=== PATIENT | female | born 1945 | race Caucasian/White ===

== ENCOUNTER 2021-06-15 15:06 | Outpatient (CLI) | payer MEDICARE, SELFPAY ==
--- NOTE | ~2021-06-15 | CT_ITS ---
EXAMINATION: CT brain wo con EXAM DATE: 06/15/2021 15:42 INDICATION: Syncope and collapse. TECHNIQUE: Spiral CT of the head was performed without contrast. Axial, coronal and sagittal images were reviewed. The dose-length product (DLP) for this examination was 605.33 mGy-cm. The exposure w as tailored according to patient size, and iterative reconstruction (ASIR) was used as additional dos e reduction technique. There is no prior study for comparison. FINDINGS: There is no acute intraparenchymal hemorrhage. No evidence of intraparenchymal brain mass lesion. No evidence of acute infarction. Please note that initial head CT has limited sensitivity f or small or acute infarctions. There is mild periventricular and subcortical hypodensity, nonspecific but probably related to small vessel ischemic disease. There is mild prominence of the sulci and v entricles related to cerebral atrophy. There is intracranial carotid arteriosclerosis. There are n o extra-axial collections. There is no mass effect or midline shift. The orbits are unremarkable. Soft tissue is unremarkable. The visualized sinuses and mastoid air cells are well aerated. IMPRESSION: 1. No acute intracranial findings. 2. Mild senescent changes. Reviewed, dictated and finalized at location B.
== END 2021-06-15 15:07 | disposition home or self-care (01) ==
PROVIDERS: PCP Physician Assistant; Visit Provider Physician Assistant
DX: R55 Syncope and collapse (principal)
CPT/HCPCS: 70450

== ENCOUNTER 2022-07-30 15:33 | Emergency (ER) | payer MEDICARE, SELFPAY ==
--- NOTE | ~2022-07-30 | XR_ITS ---
EXAM: XR humerus RT DATE: 07/30/2022 17:10 HISTORY: fall with arm injury . COMPARISON: None available. FINDINGS: Decreased mineralization. Mildly comminuted, mildly angulated fracture of the proximal rig ht humerus extending into the humeral head, likely involving portions of the greater tuberosity. No l ytic or blastic lesion. Degenerative AC and glenohumeral joint change. No erosion or periosteal carroll e. Soft tissues within normal limits. IMPRESSION: Mildly comminuted, mildly angulated humeral head/proximal humerus fracture. Reviewed, dictated and finalized at location K. IMPRESSION: Mildly comminuted, mildly angulated humeral head/proximal humerus f racture.
--- NOTE | ~2022-07-30 | XR_ITS ---
EXAM: XR forearm RT 2V DATE: 07/30/2022 18:18 HISTORY: fall with arm injury . COMPARISON: None available. FINDINGS: Decreased mineralization. Transverse distal right radial fracture, with posterior angulati on. No other fracture detected. No lytic or blastic lesion. Scattered degenerative changes. No erosio n or periosteal change. Soft tissues within normal limits. IMPRESSION: Transverse distal right radial fracture with mild posterior angulation. Reviewed, dictated and finalized at location K. IMPRESSION: Transverse distal right radial fracture with mild posterior angulat ion.
[2022-07-30 15:56] VITALS: BP 136/56; PULSE 88; RESP 16; TEMP 36.6; O2SAT 97
--- NOTE | 2022-07-30 16:48 | ED.FALL ---
HPI - Fall General Chief Complaint: Fall Stated Complaint: fall with pain to right arm Time Seen by Provider: 07/30/22 16:42 History of Present Illness HPI Narrative: Pt was pulling weeds and fell backward and rolled down a hill and struck a tree with her right arm. Pt denies LOC or neck pain. Pt complains of pain to her entire right arm. Related Data Allergies Allergy/AdvReac Type Severity Reaction Status Date / Time No Known Allergies Allergy Verified 07/30/22 15:33 Review of Systems Review of Systems: All systems reviewed & are unremarkable except as noted in HPI and below Exam Const: General: healthy appearing and no acute distress Nutritional Appearance: well nourished Orientation/consciousness: patient oriented x3 Limitations: no limitations HENMT: Head: normal to inspection Eyes: Conjunctivae: conjunctivae normal EOM: EOMs intact bilaterally Neck: Neck: normal visual inspection and no lymphadenopathy Chest: Chest palpation & inspection: normal inspection of the chest Resp: Effort & Inspection: normal respiratory effort Auscultation: clear to auscultation bilaterally Cardio: Rate: regular rate Rhythm: regular rhythm GI: GI Palp: Yes Soft to palpation Auscultation: normal bowel sounds Skin: General skin exam: normal color Rashes: no rashes Neuro: General: patient oriented x3 Cranial nerves: Yes Nystagmus not present Speech: normal speech Extrem: Other: tender right elbow and forearm, no obvious deformity. some swelling. pulses intact. Psych: Mental Status: mental status grossly normal Affect: normal affect Attitude: cooperative Course Course Emergency Course: discussed with dr thompson splstacy on wrist ans sling and will see in follow up in office Vital Signs Vital signs: Vital Signs Temperature 97.8 F 07/30/22 15:56 Pulse Rate 88 07/30/22 15:56 Respiratory Rate 16 07/30/22 15:56 Blood Pressure 136/56 L 07/30/22 15:56 Pulse Oximetry 97 07/30/22 15:56 Oxygen Delivery Room Air 07/30/22 15:56 Temperature 97.8 F 07/30/22 15:56 Pulse Rate 88 07/30/22 15:56 Respiratory Rate 16 07/30/22 15:56 Blood Pressure 136/56 L 07/30/22 15:56 Pulse Oximetry 97 07/30/22 15:56 Oxygen Delivery Room Air 07/30/22 15:56 Discharge Plan Discharge Clinical Impression: Fracture of wrist, Fracture of proximal end of right humerus Patient Disposition: Home, Self-Care Condition: Stable Instructions: Antibiotic Form, Wrist Fracture in Adults (ED), Proximal Humerus Fracture (ED) Prescriptions: New hydrocodone-acetaminophen 5-325 mg tablet 1 tablet PO Q6H PRN (Reason: pain) Qty: 14 0RF Follow-up/Referrals: Leana,Maggie Doty PA-C [Primary Care Provider] -
== END 2022-07-30 19:25 | disposition home or self-care (01) ==
PROVIDERS: Emergency Provider Emergency Medicine; PCP Physician Assistant
DX: S42.201A Unspecified fracture of upper end of right humerus, initial encounter for closed fracture (principal); S52.501A Unspecified fracture of the lower end of right radius, initial encounter for closed fracture; W17.81XA Fall down embankment (hill), initial encounter
CPT/HCPCS: 29125; 73060; 73090; 99284; A4565

== ENCOUNTER 2022-11-20 13:30 | Outpatient (RCR) | payer MEDICARE, SELFPAY ==
--- NOTE | 2022-09-19 13:37 | PTOPEVAL1 ---
Assessment and note entered by Marilyn Tan, PT Evaluation Information Assessment Status Evaluation Diagnosis s/p fall with R humeral fracture & radial fracture- non surgical Subjective Information pulling weeds from a retaining wall, pulled hard, fell backwards, rolled down hill, hit a tree; had splint on R wrist and R arm sling for shoulder, no longer using either one; am doing the pendulum exercises and wall walking for shoulder; trying to work fingers, but they do not move very well; Reported Pain Level Pain Score Self Report R shoulder Additional Pain Score Comments pain range of 0-4/10; hurts, sore, ouch; increase pain with moving shoulder; can lie on R side with sleeping; decrease pain with rest, ice, advil PRN ; also have pain in R wrist and fingers; Assessment PT Clinical Summary Ganesh has the diagnosis of R humeral and radial fracture-non surgical, s/p fall. Prior to fall, she was active and did not have any limitations in activity. She is R handed and has been trying to move her R shoulder and hand. Discussed with pt and will request OT orders for wrist and hand treatment from . With the evaluation, she has decreased ROM and strength of R shoulder with pain all motions. Skilled PT services are indicated for modalities to decrease pain, therapeutic exercises to increase shoulder ROM and strength, education to progress HEP and posture/position of shoulder. Plan of Care Interventions Electrical Stimulation,Hot Pack/Cold Pack,Manual Therapy,Neuro Re-education,Patient/Caregiver Education,Therapeutic Activities,Therapeutic Exercise,Ultrasound,Other Other Interventions taping PT Services Indicated Yes Treatment Frequency and 1-2x/wk for 5 weeks, pt requested 1-2 due to Duration insurance copay; informed her of financial assistance option These treatments will address the objective and functional deficits as defined above. The patient will be advanced safely and appropriately in order for the patient to progress towards his/her prior level of function. Additional exercises will be introduced and as well as a comprehensive home exercise program upon discharge, if needed, ?to ensure carryover of functional gains achieved in the clinic. This treatment plan has been reviewed and agreement upon by the patient.
--- NOTE | 2022-09-19 14:40 | PCPTNOTE ---
faxed request to Dr Marino for OT eval/treat to address radial fracture/hand and wrist. pt agreed to OT services;
--- NOTE | 2022-10-04 14:35 | OTOPEVAL1 ---
Assessment and note entered by ROMEL Fry/Frankie Evaluation Information Assessment Status Evaluation Diagnosis Distal radius fracture Subjective Information Ganesh presents today following a fall resulting in a distal radius fracture of the R UE on 07/30/2022 (9 weeks prior). Patient has complaints of difficulty with finger flexion, gripping items, using silverware. Reported Pain Level Pain Score 3: Self Report Assessment OT Clinical Summary Ganesh is a 77 year old R hand dominant female who presents to outpatient OT 9 weeks post distal radius fracture. Patient demonstrates deficits with ROM of the forearm, wrist, hand in addition to decreased strength of R UE hand. Patient would benefit from skilled OT for instruction of HEP materials, UE strengthening, UE ROM, modalities, manual therapy in order to improve optimal use of R UE for functional and daily tasks. Plan of Care Interventions Therapeutic Exercise,Manual Therapy,Therapeutic Activities,Hot Pack/Cold Pack,Self-Care/Home Management,Paraffin OT Services Indicated Yes These treatments will address the objective and functional deficits as defined above. The patient will be advanced safely and appropriately in order for the patient to progress towards his/her prior level of function. Additional exercises will be introduced and as well as a comprehensive home exercise program upon discharge, if needed, ?to ensure carryover of functional gains achieved in the clinic. This treatment plan has been reviewed and agreement upon by the patient.
--- NOTE | 2022-10-29 11:37 | OTOPPROG ---
Assessment and note entered by Marilee Middleton OTR/Frankie Evaluation Information Assessment Status Progress Diagnosis Distal radius fracture Subjective Information Ganesh presents today for a re-evaluation following a fall resulting in a distal radius fracture of the R UE on 07/30/2022. Patient has complaints of difficulty with finger flexion, gripping items, using silverware. Patient reports since starting therapy feels there is more motion in hand is able to complete more tasks than prior such as using fork. Assessment OT Clinical Summary Ganesh is a 77 year old R hand dominant female who presents to outpatient OT for re-evaluation following 4 weeks of therapy after a R UE distal radius fracture. 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 Patient still unable to make a composite fist with R UE. Patient would benefit from continued skilled OT for instruction of HEP materials, UE strengthening, UE ROM, modalities, manual therapy in order to improve optimal use of R UE for functional and daily tasks. Plan of Care Interventions Therapeutic Exercise,Manual Therapy,Therapeutic Activities,Hot Pack/Cold Pack,Self-Care/Home Management,Paraffin OT Services Indicated Yes Treatment Frequency and 0-1x/wk 4 weeks Duration These treatments will address the objective and functional deficits as defined above. The patient will be advanced safely and appropriately in order for the patient to progress towards his/her prior level of function. Additional exercises will be introduced and as well as a comprehensive home exercise program upon discharge, if needed, ?to ensure carryover of functional gains achieved in the clinic. This treatment plan has been reviewed and agreement upon by the patient.
[2022-10-29 11:45] VITALS: BP_SYST 95
--- NOTE | 2022-10-29 12:22 | PTOPDC ---
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 She has improved with her R shoulder since evaluation: pain at worst decreased from 4 to 2/10 increased active ROM and strength of all shoulder motions; increase use of R arm with home and self care tasks; She is independent with her home exercise program for her R shoulder. Discharge PT services. She is to continue with the stretching and strenghening of her shoulder. Plan of Care PT Services Indicated No
--- NOTE | 2022-11-20 14:19 | OTOPDC ---
Assessment and note entered by Marilee Middleton OTR/Frankie Evaluation Information Assessment Status Discharge Diagnosis Distal radius fracture Subjective Information Ganesh presents today following a fall resulting in a distal radius fracture of the R UE on 07/30/2022. Patient reports hand is moving better and would like to continue working on ROM and strength at home. Reported Pain Level Pain Score 0: Self Report Assessment OT Clinical Summary Ganesh is a 77 year old R hand dominant female who presents to outpatient OT for discharge following a R UE distal radius fracture. Patient demonstrates improvements with R UE active ROM, pumper helper/pinch strength. Patient reports feels hand is progressing well and would like to continue at home and is pleased to be discharged today from OT . Patient is independent with HEP which was progressed today and plan is to be discharged from skilled OT at this time. Plan of Care OT Services Indicated No
== END 2022-11-20 14:32 | disposition home or self-care (01) ==
LOC: ANHOT 13:30
PROVIDERS: PCP Physician Assistant; Visit Provider Orthopaedic Surgery
DX: S42.209D Unspecified fracture of upper end of unspecified humerus, subsequent encounter for fracture with routine healing (principal); S52.501D Unspecified fracture of the lower end of right radius, subsequent encounter for closed fracture with routine healing
CPT/HCPCS: 97018; 97110; 97112; 97140; 97161; 97165

== ENCOUNTER 2023-06-26 13:22 | Outpatient (CLI) | payer MEDICARE, SELFPAY ==
--- NOTE | 2023-06-26 14:00 | NEURO_ITS ---
Impression: # Complains of paresthesia of the left hand with nocturnal pain. # Severe left Carpal Tunnel Syndrome. # No ulnar neuropathy. # Abnormal Needle/EMG exam. Nerve Conduction Studies Anti Sensory Summary Table Stim Site NR Peak (ms) P-T Amp (?V) Site1 Site2 Delta-P (ms) Dist (cm) Gopi (m/s) Left Median Anti Sensory (2-3nd Digit) NO RESPONSE Wrist 8.8 28.9 Wrist 2-3nd Digit 8.8 14.0 16 Wrist NR Wrist 2-3nd Digit 8.8 14.0 16 Left Radial Anti Sensory (Base 1st Digit) Wrist 1.9 16.0 Wrist Base 1st Digit 1.9 0.0 Left Ulnar Anti Sensory (5th Digit) Wrist 2.4 25.8 Wrist 5th Digit 2.4 14.0 58 Motor Summary Table Stim Site NR Onset (ms) O-P Amp (mV) Site1 Site2 Delta-0 (ms) Dist (cm) Gopi (m/s) Left Median Motor (Abd Poll Brev) Wrist 7.6 1.1 Elbow Wrist 4.7 26.0 55 Elbow 12.3 1.2 Left Ulnar Motor (Abd Dig Minimi) Wrist 2.5 6.5 A Elbow Wrist 4.9 26.0 53 A Elbow 7.4 6.0 F Wave Studies NR F-Lat (ms) L-R F-Lat (ms) Left Median (Mrkrs) (Abd Poll Brev) 28.70 Left Ulnar (Mrkrs) (Abd Dig Min) 30.14 EMG Side Muscle Nerve Root Ins Act Fibs Amp Dur Recrt Comment Left 1stDorInt Ulnar C8-T1 Nml Nml Nml Nml Nml Left Ext Indicis Radial (Post Int) C7-8 Nml Nml Nml Nml Nml Left Ext Digitorum Radial (Post Int) C7-8 Nml Nml Nml Nml Nml Left BrachioRad Radial C5-6 Nml Nml Nml Nml Nml Left PronatorTeres Median C6-7 Nml Nml Nml Nml Nml Left Abd Poll Brev Median C8-T1 Nml Nml Incr >12ms Reduced MTDD
== END 2023-06-26 13:23 | disposition home or self-care (01) ==
LOC: ANHNEURO 13:23
PROVIDERS: Visit Provider Orthopaedic Surgery
DX: G56.02 Carpal tunnel syndrome, left upper limb (principal)
CPT/HCPCS: 95886; 95909

== ENCOUNTER 2024-12-28 13:46 | Emergency (ER) | payer MEDICARE, SELFPAY ==
--- NOTE | ~2024-12-28 | CT_ITS ---
EXAMINATION: CT abd pelvis lumbar w con DATE: 12/28/2024 17:28 INDICATION: Right flank pain. Pelvic pain. TECHNIQUE: Computed tomography (CT) of the abdomen and pelvis and lumbar spine was performed with 100 mL Omnipaque 350 intravenous contrast. Automated exposure control and iterative reconstruction techn ique were employed. The dose-length product was 340.04 mGy-cm. COMPARISON: None FINDINGS: CT ABDOMEN AND PELVIS: The visualized portions of lung bases demonstrate mild atelectasis on the righ t. No pleural effusion. The heart size is normal. There are coronary artery calcifications. No perica rdial effusion. Paraesophageal varices are noted. The liver, gallbladder, spleen, pancreas, adrenal g lands, and kidneys are normal. The periuterine veins and ovarian veins are enlarged, consistent with pelvic venous insufficiency. There are no dilated loops of bowel. The appendix is normal. There is ca lcified atherosclerosis of the aorta and many of the other arteries. There are no pathologically enla rged lymph nodes. There is no free intraperitoneal fluid. CT LUMBAR SPINE: Alignment is normal. Vertebral body heights are normal. There is mildly decreased di sc height at L1-L2 and severely decreased disc at L2-L3, L4-L5, and L5-S1. The following disc levels are specifically discussed: L1-L2: The disc is bulging. There is moderate bilateral facet joint osteoarthritis. There is mild wolfgang ateral neural foraminal stenosis. There is mild central canal stenosis. L2-L3: The disc is bulging. There is moderate right and severe left facet joint osteoarthritis. There is mild bilateral neural foraminal stenosis. There is mild central canal stenosis. L3-L4: The disc is bulging. There is moderate right and severe left facet joint osteoarthritis. There is mild bilateral neural foraminal stenosis. There is mild central canal stenosis. L4-L5: The disc is bulging. There is severe bilateral facet joint osteoarthritis. There is mild right and moderate left neural foraminal stenosis. There is moderate central canal stenosis. L5-S1: The disc is bulging. There is severe bilateral facet joint osteoarthritis. There is mild right and moderate left neural foraminal stenosis. There is mild central canal stenosis. IMPRESSION: 1. Pelvic venous insufficiency. 2. Severe lumbar spondylosis. Reviewed, dictated and finalized at location A. STRY AID TECHNICIAN
[2024-12-28 14:08] VITALS: BP 187/73; PULSE 72; RESP 20; TEMP 36.5; O2SAT 98
--- OUTSIDE RECORDS SUMMARY | 2024-12-28 14:34 | XMS_ITS | Clinical Summary ---
Author Organization [facility] [address] [facility] Address [address] [place] [address] Care Team Providers Care Senior Mobile Application Developer Name Role Phone Marleny Miller NP Primary Care Provider [phone] Allergies No known active allergies Medications aspirin 81 mg enteric coated tablet Take 1 tablet (81 mg total) by mouth every evening Active clobetasoL (TEMOVATE) 0.05 % ointment Apply 1 Application topically 2 (two) times a day as needed Active enalapril (VASOTEC) 5 mg tablet TAKE 1 TABLET EVERY DAY 90 tablet 3 07/01/20 24 Active lovastatin (MEVACOR) 20 mg tablet TAKE 1 TABLET EVERY DAY 90 tablet 3 07/01/20 24 Active glyBURIDE (DIABETA) 5 mg tablet TAKE 1 TABLET EVERY DAY WITH BREAKFAST 90 tablet 3 07/01/20 24 Active levothyroxine (SYNTHROID) 112 mcg tabletIndications: Acquired hypothyroidism TAKE 1 TABLET (112 MCG TOTAL) BY MOUTH EXCAVATOR BACKHOE OPERATOR BEFORE BREAKFAST 90 tablet 3 07/01/20 24 Active propranoloL (INDERAL) 10 mg tabletIndications: Palpitations TAKE 1 TABLET(10 MG) BY MOUTH DAILY 90 tablet 1 10/19/20 24 Active Active Problems Problem Noted Date Diagnosed Date Positive colorectal cancer screening using Colog uard test 03/26/2024 Overview (03/26/2024): Contact Dr. Cloud's office for positive Cologuard test. We will call you in 2 weeks Palpitations 03/03/2024 Overview (03/03/2024): Start propranolol 10 mg daily. Follow-up with cardiology as directed. Go to the ER for worsening symptoms BMI 24.0-24.9, adult 03/03/2024 Overview (03/03/2024): Maintain healthy and balanced diet Feeling of chest tightness 02/20/2024 Overview (02/20/2024): Go directly to the ER for evaluation of intermittent chest pain. Follow-up after discharge Colon cancer screening declined 01/29/2023 Tobacco use 05/30/2022 Assessment & Plan (05/31/2022 7:07 AM CDT): Advised smoking cessation, she declines aid. Bilateral carpal tunnel syndrome 05/30/2022 Assessment & Plan (05/31/2022 7:06 AM CDT): Discussed that symptoms are concerning for CTS. Advised cockup splints at hs and cutting back on phone/screen time. Will refer to ortho for further evaluation and treatment. Elbow pain, right 05/30/2022 Assessment & Plan (05/31/2022 7:06 AM CDT): Will refer to ortho for further evaluation and treatment. Chronic right shoulder pain 05/30/2022 Assessment & Plan (05/31/2022 7:06 AM CDT): Will refer to ortho for further evaluation and treatment. Acquired hypothyroidism 05/24/2021 Assessment & Plan (05/31/2022 7:05 AM CDT): We reviewed recent labs. Will increase synthroid and repeat tsh, free t4 in 12w. Assessment & Plan (12/12/2021 3:49 PM PIEROGI MAKER): Stable, continue medications same at this time Fasting labs entered, will notify patient of results as available Assessment & Plan (05/24/2021 6:20 PM CDT): Controlled with current medication, rf prn Fasting labs entered, will notify patient of results as available Type 2 diabetes mellitus with hyperlipidemia Assessment & Plan (05/31/2022 7:07 AM CDT): Patient advised goal glucose fasting 80-120. They were reminded to contact the office if having difficulty keeping sugar in goal ranges. They were advised to not skip meals and maintain a heart healthy diet (cut back on processed foods, red meat, fried foods). They were reminded to exercise 4x/week for 30min each session. Assessment & Plan (12/12/2021 3:49 PM PIEROGI MAKER): Stable, continue medications same at this time Fasting labs entered, will notify patient of results as available Assessment & Plan (05/24/2021 6:20 PM CDT): Controlled with current medication, rf prn Fasting labs entered, will notify patient of results as available Hypertension associated with diabetes 05/24/2021 Assessment & Plan (05/31/2022 7:07 AM CDT): Patient advised to continue medications the same at this time. They will monitor home bp with goal 120-130/80s. Assessment & Plan (12/12/2021 3:49 PM PIEROGI MAKER): Stable, continue medications same at this time Fasting labs entered, will notify patient of results as available Assessment & Plan (05/24/2021 6:20 PM CDT): Controlled with current medication, rf prn Fasting labs entered, will notify patient of results as available Colon cancer screening 05/24/2021 Assessment & Plan (05/24/2021 6:21 PM CDT): Retrieve records from previous pcp She declines vaccination updates, bmd, cscope, or mammo Resolved Problems Problem Noted Date Diagnosed Date Resolved Date BMI 25.0-25.9,adult 05/30/2022 08/13/20 24 Subconjunctival hemorrhage of left eye 12/12/2021 01/29/2023 Assessment & Plan (12/12/2021 3:49 PM PIEROGI MAKER): Advised conservative treatment, follow up if having pain, difficulty with vision Advised routine DM eye exam BMI 24.0-24.9, adult 05/31/2021 023 Assessment & Plan (05/31/2021 2:28 PM CDT): Weight/BMI is in healthy range. Continue healthy lifestyle to maintain. Syncope and collapse 05/24/2021 023 Assessment & Plan (05/31/2021 5:04 PM CDT): Advised her to arrange labs and ct head, will notify of results as available F/u if reoccurring Assessment & Plan (05/24/2021 6:20 PM CDT): She declines an er visit at this time. She declines a stat ct of head - will arrange routine instead. Advised to er if occurs again Advised no driving, climbing, or swimming at this time. Immunizations Name Administration Dates Next Due Influenza, Unspecified 08/13/2024(Deferr ed: Patient Refused),03/26/2024(Deferred: Patient Refused),02/24/2024(Deferred: Patient Refused),02/19/2024(Deferred: Patient Refused),02/05/2024(Deferred: Patient Refused),12/02/2023(Deferred: Patient Refused),12/02/2023(Deferred: Patient Refused),12/02/2023(Deferred: Patient Refused),12/02/2023(Deferred: Patient Refused),12/02/2023(Deferred: Patient Refused),08/07/2023(Deferred: Patient Refused),08/07/2023(Deferred: Patient Refused),01/29/2023(Deferred: Patient Refused),12/02/2022(Deferred: Patient Refused),12/02/2022(Deferred: Patient Refused),01/02/2022(Deferred: Patient Refused) Pneumococcal Conjugate Pcv20 08/07/2023(Deferred : Patient Refused) Surgical History Surgery Date Site/Laterality Comments TUBAL LIGATION Medical History Medical History Date Comments Hypertension Diabetes mellitus (HCC) Family History Medical History Relation Name Comments COPD Mother Hypertension Mother Relation Name Status Comments Father Mother Social History Tobacco Use Types Packs/Day Years Used Date Smoking Tobacco: Every Day Cigarettes Smokeless Tobacco: Never Tobacco Cessation:Ready to Q uit: Not Asked; Counseling Given: Not Answered AUDIT-C Answer Date Recorded Q1: How often do you have a drink containing alc ohol? Monthly or less 12/12/2021 Average Number of Drinks Not on file 022 Frequency of Binge Drinking Not on file 12/02 PHQ-2 Answer Date Recorded PHQ-2 Total Score (If total score is 3 or more points, staff should administer the PHQ-9) 1 08/13/2024 Personal Safety Answer Date Recorded Have you ever been in or are you currently in a harmful physical or emotional relationship or is someone making you feel afraid or unsafe? Denies 02/20/2024 Comments Unknown Sex and Gender Information Value Date Recorded Sex Assigned at Not on file Legal Sex Female 1:40 PM CDT Gender Identity Not on file Sexual Orientation Not on file Obstetrics History Last Filed Vital Signs Vital Sign Reading Time Taken Comments Blood Pressure 138/64 08/13/2024 2:29 PM CDT Pulse 67 08/13/2024 2:29 PM CDT Temperature 36.9 ??C (98.4 ??F) 08/13/2024 2:29 PM CD T Respiratory Rate 13 02/20/2024 2:35 PM CDT Oxygen Saturation 97% 08/13/2024 2:29 PM CDT Inhaled Oxygen Concentration - - Weight 61.7 kg (136 lb) 08/13/2024 2:29 PM CDT Height 157.5 cm (5' 2 ) 08/13/2024 2:29 PM CDT Body Mass Index 24.87 08/13/2024 2:29 PM CDT Plan of Treatment Health Maintenance Due Date Last Done Comments Osteoporosis Screening-Bone Density Scan 1945 Dilated Eye Exam 1945 Foot Exam 1945 Pneumococcal vaccine 65+ (1 of 2 - PCV) 1953 DTaP/Tdap/Td Vaccine (1 - Tdap) 1958 Hepatitis B Screening 1965 Zoster Vaccine (1 of 2) 1997 Influenza Vaccine (#1) 2024 Albumin Creatinine Ratio, Urine 01/22/2025 Lipid Panel 01/22/2025 01/22/2024, 03/0 05/2023, 05/23/2022, Additional history exists Hemoglobin A1C 02/10/2025 08/13/2024, 02/2 12/2023, 02/04/2023, Additional history exists eGFR 02/19/2025 02/20/2024, 022 12/2023, 02/04/2023, Additional history exists Depression Screening 08/13/2025 08/13/2024, 03/26/2024, 02/24/2024, Additional history exists Fall Risk Assessment 08/13/2025 08/13/2024, 03/26/2024, 02/24/2024, Additional history exists Well Visit 65+ 08/13/2025 08/13/2024, 03/0 05/2024, 08/07/2023 Colon Cancer Screening-DNA Stool 03/16/2027 03/16/20 Hepatitis C Screening Completed 02/04/2023 Procedures Procedure Name Priority Date/Time Associated Diagnosis Comments POCT HEMOGLOBIN A1C Routine 08/13/2024 3 :39 PM CDT Hypertension associated with diabetes (HCC) STOOL DNA ? COLOGUARD Routine 03/16/2024 8:30 AM CDT Colon cancer screening EGFR STAT 02/20/2024 1:23 PM CDT LIPID PANEL Routine 01/22/2024 8:55 AM PIEROGI MAKER Type 2 diabetes mellitus with hyperlipidemia (HCC) ALBUMIN CREATININE RATIO, URINE Routine 01/22/2024 8:55 AM PIEROGI MAKER Hypertension associated with diabetes (HCC) HEPATITIS C ANTIBODY Routine 02/04/2023 8:46 AM PIEROGI MAKER Encounter for hepatitis C screening test for low risk patient from Last 3 Months or Most Recently Relevant to Health Maintenance Results * (ABNORMAL) POCT hemoglobin A1c (08/13/2024 3:39 PM CDT) Hemoglobin A1C, POC 7.6 4.0 - 5.6 % BLD 08/13/2024 3:39 PM CDT Marleny Miller NP POINT OF CARE TEST ORDERABLES Final Result * (ABNORMAL) Stool DNA - Cologuard (03/16/2024 8:30 AM CDT) Stool DNA - Cologuard Positive( A) Negative [facility] (CLIA #:[id number]) Comment: POSITIVE TEST RESULT. A positive Cologuard result should be followed with a colonoscopy or visual examination of the colon. The normal value (reference range) for this assay is negative. TEST DESCRIPTION: Composite algorithmic analysis of stool DNA-biomarkers with hemoglobin immunoassay. ?? Quantitative values of individual biomarkers are not reportable and are not associated with individual biomarker result reference ranges. Cologuard is intended for colorectal cancer screening of adults of either sex, 45 years or older, who are at average-risk for colorectal cancer (CRC). Cologuard has been approved for use by the U.S. FDA. The performance of Cologuard was established in a cross sectional study of average-risk adults aged 50-84. Cologuard performance in patients ages 45 to 49 years was estimated by sub-group analysis of near-age groups. Colonoscopies performed for a positive result may find as the most clinically significant lesion: colorectal cancer [4.0%], advanced adenoma (including sessile serrated polyps greater than or equal to 1cm diameter) [20%] or non- advanced adenoma [31%]; or no colorectal neoplasia [45%]. These estimates are derived from a prospective cross-sectional screening study of 10,000 individuals at average risk for colorectal cancer who were screened with both Cologuard and colonoscopy. (Tyrese Chen al, N Engl J Med 2014;370(14):0678-8482.) Cologuard may produce a false negative or false positive result (no colorectal cancer or precancerous polyp present at colonoscopy follow up). A negative Cologuard test result does not guarantee the absence of CRC or advanced adenoma (pre-cancer). The current Cologuard screening interval is every 3 years. ([place] Cancer Society and U.S. Multi-Society Task Force). Cologuard performance data in a 10,000 patient pivotal study using colonoscopy as the reference method can be accessed at the following location: www.Active DSP.PlayBuzz/results. Additional description of the Cologuard test process, warnings and precautions can be found at www.Kona DataSearchrd.com. Stool 03/16/2024 8:30 AM CDT 03/17/2024 10:19 AM CDT us Marleny Miller NP LAB BODY FLUIDS AND STOOLS OR DERABLES Final Result [facility] (CLIA #:[id number]) [place] [address] [place] [address] * eGFR (02/20/2024 1:23 PM CDT) eGFR 92 mL/min/1. 73 m2 Comment: Interpretive Data Reference Interval Normal ?>/= 90 mL/min/1.73m2 Mildly decreased* ? 60 - 89 mL/min/1.73m2 Mildly to moderately decreased ?45 - 59 mL/min/1.73m2 Moderately to severely decreased ??30 - 44 mL/min/1.73m2 Severely decreased ?15 - 29 mL/min/1.73m2 Kidney Failure ?< 15 ??mL/min/1.73m2 *Relative to young adult level Estimated glomerular filtration rate is determined by the 2020 CKD-EPI equation recommended by the National Kidney Foundation (A Unifying Approach to GFR Estimation: Recommendations of the NKF-ASK Task Force on Reassessing the Inclusion of Race in Diagnosing Kidney Disease, JASN 2020). The CKD-EPI equation should not be used for patients with unstable renal function and has not been validated in children and those over 70. Current interpretive data was last reviewed 2021. Testing performed by: [facility], [address] [place] [address]., [id number] Blood 02/20/2024 1:23 PM CDT 02/20/2024 1:27 PM CDT us Aime Mayfield DO LAB BLOOD ORDERABLES Final Result Performing Organization Address City/[facility]/ZIP Co de Phone Number [facility] [address] [facility] Department [place] [address] * Albumin Creatinine Ratio, Urine (01/22/2024 8:55 AM PIEROGI MAKER) Pathologist [facility] Creatinine, ur 118 20 - 275 mg/dL [facility] Microalbumin, ur 1.1 See Note: mg/dL [facility] Comment: Reference Range: Reference Range Not established Microalbumin/creat ratio 9 <30 mcg/mg creat [facility] Comment: The ADA defines abnormalities in albumin excretion as follows: Albuminuria Category ?Result (mcg/mg creatinine) Normal to Mildly increased ?? <30 Moderately increased ? 30-299 Severely increased ? > OR = 300 The ADA recommends that at least two of three specimens collected within a 3-6 month period be abnormal before considering a patient to be within a diagnostic category. Urine 01/22/2024 8:55 AM PIEROGI MAKER 01/22/2024 8:59 AM PIEROGI MAKER Narrative [facility] - 01/23/2024 10:54 AM PIEROGI MAKER FASTING:YES FASTING: YES us Marleny Miller PHARMACY STUDENT LAB URINE ORDERABLES Final Re sult [facility] [address] [address] * Lipid panel (01/22/2024 8:55 AM PIEROGI MAKER) Cholesterol 142 <200 mg/dL [facility] HDL 54 > OR = 50 mg/dL [facility] Triglycerides 64 <150 mg/dL [facility] claud[facility] Mccorm[facility] LDL 74 mg/dL (calc) [facility] Comment: Reference range: <100 Desirable range <100 mg/dL for primary prevention; ?? <70 mg/dL for patients with CHD or diabetic patients with > or = 2 CHD risk factors. LDL-C is now calculated using the Triny calculation, which is a validated novel method providing better accuracy than the Friedewald equation in the estimation of LDL-C. Napoleon SS et al. JOSÉ ANTONIO. 2013;310(59): 7032-7889 (http://education.Clarion Research Group/faq/CSJ784) Chol/HDL ratio 2.6 <5.0 (calc) [facility] Non-HDL, (LDL+VLDL) 88 <130 mg/dL (calc) [facility] Comment: For patients with diabetes plus 1 major ASCVD risk factor, treating to a non-HDL-C goal of <100 mg/dL (LDL-C of <70 mg/dL) is considered a therapeutic option. Blood 01/22/2024 8:55 AM PIEROGI MAKER 01/22/2024 8:59 AM PIEROGI MAKER Narrative [facility] - 01/23/2024 10:54 AM PIEROGI MAKER FASTING:YES FASTING: YES Marleny Miller PHARMACY STUDENT LAB BLOOD ORDERABLES Final Re sult [facility] [address] [place] [address] * Hepatitis C antibody (02/04/2023 8:46 AM PIEROGI MAKER) [facility] Hep C Ab NON-REACTI VE NON-REACT PRATIK [facility] SIGNAL TO CUT-OFF 0.04 <1.00 [facility] Comment: HCV antibody was non-reactive. There is no laboratory evidence of HCV infection. In most cases, no further action is required. However, if recent HCV exposure is suspected, a test for HCV RNA (test code 60363) is suggested. For additional information please refer to http://education.LoopFuse.PlayBuzz/faq/JNN82x5 (This link is being provided for informational/ educational purposes only.) Blood 02/04/2023 8:46 AM PIEROGI MAKER 02/04/2023 8:46 AM PIEROGI MAKER Marleny Miller NP LAB MICROBIOLOGY - GENERAL OR DERABLES Final Result Performing Organization Address City/State/[facility] Co sc Phone Number [facility] [address] [phone] from Last 3 Months or Most Recently Relevant to Health Maintenance Insurance HUMANA MEDICARE HMO HUMANA MEDICARE HMO Care Teams Senior Mobile Application Developer Relationship Specialty Start Date End Date Marleny Miller, PHARMACY STUDENT [address] [address] PCP - General Internal Medicine 01/29/23
--- OUTSIDE RECORDS SUMMARY | 2024-12-28 14:34 | XMS_ITS | Referral Summary ---
Author Organization [facility] [address] [facility] Address [address] [place] [address] Care Team Providers Care Pyroglazer Name Role Phone Marleny Miller NP Primary Care Provider [phone] Allergies No known active allergies Medications aspirin [...] 1 TABLET (112 MCG TOTAL) BY MOUTH SMALL BUSINESS BANKING OFFICER BEFORE BREAKFAST 90 tablet 3 07/01/20 24 [...] 12w. Assessment & Plan (12/12/2021 3:49 PM CONTRACT FORESTER): Stable, continue medications same at this time [...] session. Assessment & Plan (12/12/2021 3:49 PM CONTRACT FORESTER): Stable, continue medications same at this time [...] 120-130/80s. Assessment & Plan (12/12/2021 3:49 PM CONTRACT FORESTER): Stable, continue medications same at this time [...] 01/29/2023 Assessment & Plan (12/12/2021 3:49 PM CONTRACT FORESTER): Advised conservative treatment, follow up if having [...] Pneumococcal Conjugate Pcv20 08/07/2023(Deferred : Patient Refused) Social History Tobacco Use Types Packs/Day Years [...] on file Sexual Orientation Not on file Last Filed Vital Signs Vital Sign Reading [...] 08/13/2024 2:29 PM CDT Plan of Treatment Not on file Procedures Procedure Name Priority Date/Time Associated Diagnosis Comments POCT HEMOGLOBIN A1C Routine 08/13/2024 3 :39 PM CDT Hypertension associated with diabetes (HCC) STOOL DNA ? COLOGUARD Routine 03/16/2024 8:30 AM CDT Colon cancer screening EGFR STAT 02/20/2024 1:23 PM CDT LIPID PANEL Routine 01/22/2024 8:55 AM CONTRACT FORESTER Type 2 diabetes mellitus with hyperlipidemia (HCC) ALBUMIN CREATININE RATIO, URINE Routine 01/22/2024 8:55 AM CONTRACT FORESTER Hypertension associated with diabetes (HCC) HEPATITIS C ANTIBODY Routine 02/04/2023 8:46 AM CONTRACT FORESTER Encounter for hepatitis C screening test for [...] Stool DNA - Cologuard Positive( A) Negative [facility] (CLIA #:[id number]) Comment: POSITIVE TEST RESULT. A positive Cologuard [...] (Tyrese Chen al, N Engl J Med 2014;370(14):3879-6351.) Cologuard may produce a false negative or false positive result (no colorectal cancer or precancerous polyp present at colonoscopy follow up). A negative Cologuard test result does not guarantee the absence of CRC or advanced adenoma (pre-cancer). The current Cologuard screening interval is every 3 years. ([place] Cancer Society and U.S. Multi-Society Task Force). Cologuard performance data in a 10,000 patient pivotal study using colonoscopy as the reference method can be accessed at the following location: www.Doctor kinetic.Credit Karma/results. Additional description of the Cologuard test process, warnings and precautions can be found at www.[email or web address] Mobilerd.Credit Karma. Stool 03/16/2024 8:30 AM CDT 03/17/2024 10:19 AM CDT us Marleny Miller NP LAB BODY FLUIDS AND STOOLS OR DERABLES Final Result [email or web address] (CLIA #:[id number]) [address] [place] [address] * eGFR (02/20/2024 1:23 PM CDT) eGFR [...] was last reviewed 2021. Testing performed by: [facility], [address] [place] [address], [place]., [address] Blood 02/20/2024 1:23 PM CDT 02/20/2024 1:27 PM CDT Aime Mayfield DO LAB BLOOD ORDERABLES Final Result [facility] [address] [facility] Department [place] [address] * Albumin Creatinine Ratio, Urine (01/22/2024 8:55 AM CONTRACT FORESTER) Creatinine, ur 118 20 - 275 mg/dL [...] a diagnostic category. Urine 01/22/2024 8:55 AM CONTRACT FORESTER 01/22/2024 8:59 AM CONTRACT FORESTER Narrative [facility] - 01/23/2024 10:54 AM CONTRACT FORESTER FASTING:YES FASTING: YES Marleny Miller GRINDER WATCH PARTS LAB URINE ORDERABLES Final Re sult [facility] [address] [address] * Lipid panel (01/22/2024 8:55 AM CONTRACT FORESTER) Pathologist [facility] Cholesterol 142 <200 mg/dL [facility] HDL 54 > OR = 50 mg/dL [facility] Triglycerides 64 <150 mg/dL [facility] LDL 74 mg/dL (calc) [facility] Comment: Reference range: <100 Desirable range <100 mg/dL for primary prevention; ?? <70 mg/dL for patients with CHD or diabetic patients with > or = 2 CHD risk factors. LDL-C is now calculated using the Triny calculation, which is a validated novel method providing better accuracy than the Friedewald equation in the estimation of LDL-C. Napoleon WORKMAN et al. JOSÉ ANTONIO. 2013;310(19): 3291-9943 (http://education.Desire2Learn/faq/BSA004) Chol/HDL ratio 2.6 <5.0 (calc) [facility] Non-HDL, (LDL+VLDL) 88 <130 mg/dL (calc) [facility] Comment: For patients with diabetes plus 1 major ASCVD risk factor, treating to a non-HDL-C goal of <100 mg/dL (LDL-C of <70 mg/dL) is considered a therapeutic option. Blood 01/22/2024 8:55 AM CONTRACT FORESTER 01/22/2024 8:59 AM CONTRACT FORESTER Narrative [facility] - 01/23/2024 10:54 AM CONTRACT FORESTER FASTING:YES FASTING: YES Marleny Miller GRINDER WATCH PARTS LAB BLOOD ORDERABLES Final Re sult Performing Organization Address City/[facility]/ZIP Co de Phone Number [facility] [address] [place] [address] * Hepatitis C antibody (02/04/2023 8:46 AM CONTRACT FORESTER) Hep C Ab NON-REACTI VE NON-REACT PRATIK [facility] SIGNAL TO CUT-OFF 0.04 <1.00 [facility] Comment: HCV antibody was non-reactive. There is no laboratory evidence of HCV infection. In most cases, no further action is required. However, if recent HCV exposure is suspected, a test for HCV RNA (test code 42777) is suggested. For additional information please refer to http://education.PharmaSecure/faq/CIG23w0 (This link is being provided for informational/ educational purposes only.) Blood 02/04/2023 8:46 AM CONTRACT FORESTER 02/04/2023 8:46 AM CONTRACT FORESTER Marleny Miller NP LAB MICROBIOLOGY - GENERAL OR DERABLES Final Result Performing Organization Address City/State/[facility] Co wa Phone Number [facility] [address] [place] [address] from Last 3 Months or Most Recently Relevant to Health Maintenance Insurance HUMANA MEDICARE HMO HUMANA MEDICARE HMO Care Teams Pyroglazer Relationship Specialty Start Date End Date Marleny Miller, BRAEDEN [address] [facility] [address] [place] [address] PCP - General Internal Medicine 01/29/23
--- NOTE | 2024-12-28 15:29 | ED.BACK ---
HPI - Back Pain/Injury General Chief Complaint: Back Pain/Injury <Mehnza Phillips, ASSEMBLER INSTALLER GENERAL - Last Filed: 12/28/24 15:33> Stated Complaint: SCIATICA PAIN <Mehnaz Phillips ASSEMBLER INSTALLER GENERAL - Last Filed: 12/28/24 15:33> Time Seen by Provider: 12/28/24 15:20 <Mehnaz Phillips ASSEMBLER INSTALLER GENERAL - Last Filed: 12/28/24 15:33> Focused HPI: Patient is a 79-year-old female who presents to the ER with right flank and pelvis pain. She also endorses sciatic that started approximately 3 days. Patient denies any urinary symptoms or abdominal pain. She also reports her blood pressure has been elevated over the last 3 days but is normally well controlled with blood pressure medication. Patient denies chest pain, shortness of breath, recent fevers. She denies any medical history besides sciatica and hypertension. GENERAL: Well-appearing, well-nourished, and in no acute distress. HEAD: Normocephalic, atraumatic. CHEST: Clear to auscultation. ?No respiratory distress. HEART: Regular rate and rhythm.? NEURO: ?Alert and oriented x3. Cranial nerves intact. Patient screened in triage and initial orders placed.? ?Additional care and disposition to be based upon?diagnostic testing and treatment. <Mehnaz Phillips, ASSEMBLER INSTALLER GENERAL - Last Filed: 12/28/24 15:33> Focused HPI: Patient is a 79-year-old female who presents to the ER with right flank and pelvis pain. She also endorses sciatic that started approximately 3 days. Patient denies any urinary symptoms or abdominal pain. She also reports her blood pressure has been elevated over the last 3 days but is normally well controlled with blood pressure medication. Patient denies chest pain, shortness of breath, recent fevers. She denies any medical history besides sciatica and hypertension. No urinary retention, bowel incontinence, saddle anesthesia lower extremity weakness. She denies any history of IV drug abuse cancer fevers or trauma. GENERAL: Well-appearing, well-nourished, and in no acute distress. HEAD: Normocephalic, atraumatic. CHEST: Clear to auscultation. ?No respiratory distress. HEART: Regular rate and rhythm.? NEURO: ?Alert and oriented x3. Cranial nerves intact. Patient screened in triage and initial orders placed.? ?Additional care and disposition to be based upon?diagnostic testing and treatment. <Preet Morrell MD - Last Filed: 12/28/24 19:11> Related Data Allergies/Adverse Reactions: Allergies Allergy/AdvReac Type Severity Reaction Status Date / Time No Known Allergies Allergy Verified 12/28/24 14:09 <Mehnaz Phillips APRN - Last Filed: 12/28/24 15:33> [facility] Past Medical History Medical History: Medical History Hypothyroidism HTN (hypertension) HLD (hyperlipidemia) Diabetes <Mehnaz Phillips APRN - Last Filed: 12/28/24 15:33> Surgical History Surgical History: Surgical History No history of previous surgery <Mehnaz Phillips APRN - Last Filed: 12/28/24 15:33> Family History Family History: Family History Other Diabetes mellitus HLD (hyperlipidemia) Hypertension <Mehnaz Phillips APRN - Last Filed: 12/28/24 15:33> Social History Social History: Social History Smoking packs per day: 0.5 Smoking cigarettes per day: 10.0 Years smoked: 30 Smoking pack-years: 15.00 Smoking status: Current every day smoker Tobacco type: cigarettes Alcohol intake: never Substance use type: does not use Living arrangements: with family Occupation/Education: retired Gender identity (if verbalized by the patient): Female <Mehnaz Phillips APRN - Last Filed: 12/28/24 15:33> Exam Narrative: APPEARANCE: No apparent distress. Head: atraumatic. EYES: EOMI, NOSE: Atraumatic NECK: Trachea midline RESPIRATORY: No increased rate of breathing clear to auscultation CARDIOVASCULAR: RRR, ABDOMINAL: Non-distended MUSCULOSKELETAl: Straight leg negative bilaterally NEURO: Alert. Cranial nerves 2-12 grossly intact. Sensation light touch, motor function cerebellar function intact for 4 extremities. Gait exam was normal. SKIN:: Warm, dry. Normal color PSYCHIATRIC: Normal affect <Preet Morrell MD - Last Filed: 12/28/24 19:11> Course Vital Signs Vital signs: Vital Signs Temperature 97.7 F 12/28/24 14:08 Pulse Rate 72 12/28/24 14:08 Respiratory Rate 20 12/28/24 14:08 Blood Pressure 187/73 H 12/28/24 14:08 Pulse Oximetry 98 12/28/24 14:08 Temperature 97.7 F 12/28/24 14:08 Pulse Rate 70 12/28/24 18:00 Respiratory Rate 18 12/28/24 18:00 Blood Pressure 136/68 12/28/24 18:00 Pulse Oximetry 98 12/28/24 18:00 <Mehnaz Phillips APRN - Last Filed: 12/28/24 15:33> Vital Signs Temperature 97.7 F 12/28/24 14:08 Pulse Rate 72 12/28/24 14:08 Respiratory Rate 20 12/28/24 14:08 Blood Pressure 187/73 H 12/28/24 14:08 Pulse Oximetry 98 12/28/24 14:08 Temperature 97.7 F 12/28/24 14:08 Pulse Rate 70 12/28/24 18:00 Respiratory Rate 18 12/28/24 18:00 Blood Pressure 136/68 12/28/24 18:00 Pulse Oximetry 98 12/28/24 18:00 <Preet Morrell MD - Last Filed: 12/28/24 19:11> MDM - Back Pain/Injury MDM Narrative Medical decision making narrative: -Course: 79-year-old woman presenting with right-sided sciatica. She received Toradol in the lobby and by time I interviewed her all of her symptoms had resolved she is requesting discharge. Her neurologic exam is normal. Straight leg is negative bilaterally. Patient be discharged with pain medication and primary care follow-up. -DDX includes but is not limited to: Sciatica, muscle strain, cauda equina/spinal cord impingement, AAA -Independent interpretation of studies: Labs and imaging reviewed -Interventions: Toradol, prednisone -Shared decision making / Disposition: Discharge -RX Motrin Tylenol Robaxin <Preet Morrell MD - Last Filed: 12/28/24 19:11> Lab Data Result diagrams: 12/28/24 16:42 12/28/24 16:42 <Mehnaz Phillips APRN - Last Filed: 12/28/24 15:33> Labs: Lab Results 12/28/24 Range/Units 16:42 WBC 14.1 H (4.5-10.0) K/mm3 RBC 4.98 (4.2-5.4) M/mm3 Hgb 15.1 H (12.0-15.0) g/dL Hct 43.7 (37.0-47.0) % MCV 87.8 (80-100) fl MCH 30.3 (26-34) pg MCHC 34.6 (32-36) g/dl RDW 12.2 (11.5-14.5) % Plt Count 424 H (150-375) k/mm3 MPV 10.0 (7.4-10.4) fl Immature Gran % (Auto) 0.6 H (0-0.5) % Neut % (Auto) 69.8 (45.5-73.1) % Lymph % (Auto) 22.6 (18.3-44.2) % Kidder % (Auto) 6.3 (2.6-8.5) % Eos % (Auto) 0.3 (0-4.4) % Baso % (Auto) 0.4 (0.2-1.2) % Lymph # (Auto) 3.19 (0.9-3.2) K/mm3 Kidder # (Auto) 0.9 H (0.1-0.6) K/mm3 Eos # (Auto) 0.0 (0-0.3) K/mm3 Baso # (Auto) 0.1 (0.0-0.1) K/mm3 Abs Immat Gran (auto) 0.09 H (0.00-0.031) K/mm3 Absolute Neuts (auto) 9.9 H (1.3-6.7) K/mm3 Absolute Nucleated RBC 0.000 (0.0-0.012) K/mm3 Nucleated RBC % 0.0 (0.0-0.2) % Sodium 128 L (137-145) mmol/L Potassium 4.5 (3.4-5.0) mmol/L Chloride 93 L (98-107) mmol/L Carbon Dioxide 24 (22-30) mmol/L Anion Gap 11 (4-12) mmol/L BUN 19 H (7-17) mg/dL Creatinine 0.72 (0.7-1.0) mg/dL Estim Creat Clear Calc 47 ml/min Estimated GFR > 60 (59 - ) Glucose 163 H (65-110) mg/dL Calcium 9.2 (8.4-10.2) mg/dL Total Bilirubin 0.6 (0.2-1.3) mg/dL AST 22 (14-36) U/L ALT 18 (6-35) U/L Alkaline Phosphatase 80 (38-126) U/L Total Protein 8.0 (6.3-8.2) g/dL Albumin 4.5 (3.5-5.1) g/dL <Mehnaz Phillips, ASSEMBLER INSTALLER GENERAL - Last Filed: 12/28/24 15:33> Lab Results 12/28/24 Range/Units 16:42 WBC 14.1 H (4.5-10.0) K/mm3 RBC 4.98 (4.2-5.4) M/mm3 Hgb 15.1 H (12.0-15.0) g/dL Hct 43.7 (37.0-47.0) % MCV 87.8 (80-100) fl MCH 30.3 (26-34) pg MCHC 34.6 (32-36) g/dl RDW 12.2 (11.5-14.5) % Plt Count 424 H (150-375) k/mm3 MPV 10.0 (7.4-10.4) fl Immature Gran % (Auto) 0.6 H (0-0.5) % Neut % (Auto) 69.8 (45.5-73.1) % Lymph % (Auto) 22.6 (18.3-44.2) % Kidder % (Auto) 6.3 (2.6-8.5) % Eos % (Auto) 0.3 (0-4.4) % Baso % (Auto) 0.4 (0.2-1.2) % Lymph # (Auto) 3.19 (0.9-3.2) K/mm3 Kidder # (Auto) 0.9 H (0.1-0.6) K/mm3 Eos # (Auto) 0.0 (0-0.3) K/mm3 Baso # (Auto) 0.1 (0.0-0.1) K/mm3 Abs Immat Gran (auto) 0.09 H (0.00-0.031) K/mm3 Absolute Neuts (auto) 9.9 H (1.3-6.7) K/mm3 Absolute Nucleated RBC 0.000 (0.0-0.012) K/mm3 Nucleated RBC % 0.0 (0.0-0.2) % Sodium 128 L (137-145) mmol/L Potassium 4.5 (3.4-5.0) mmol/L Chloride 93 L (98-107) mmol/L Carbon Dioxide 24 (22-30) mmol/L Anion Gap 11 (4-12) mmol/L BUN 19 H (7-17) mg/dL Creatinine 0.72 (0.7-1.0) mg/dL Estim Creat Clear Calc 47 ml/min Estimated GFR > 60 (59 - ) Glucose 163 H (65-110) mg/dL Calcium 9.2 (8.4-10.2) mg/dL Total Bilirubin 0.6 (0.2-1.3) mg/dL AST 22 (14-36) U/L ALT 18 (6-35) U/L Alkaline Phosphatase 80 (38-126) U/L Total Protein 8.0 (6.3-8.2) g/dL Albumin 4.5 (3.5-5.1) g/dL <Preet Morrell MD - Last Filed: 12/28/24 19:11> Discharge Plan Discharge Clinical Impression: Lumbar radiculopathy <Mehnaz Phillips APRN - Last Filed: 12/28/24 15:33> Patient Disposition: Home, Self-Care <Mehnaz Phillips APRN - Last Filed: 12/28/24 15:33> Condition: Stable <Mehnaz Phillips APRN - Last Filed: 12/28/24 15:33> Instructions: Antibiotic Form, Acute Low Back Pain (ED) <Mehnaz Phillips APRN - Last Filed: 12/28/24 15:33> Additional Instructions: You were seen in the ED for sciatica. You can take Motrin, Tylenol, Robaxin for pain. Please follow-up with your primary care physician for further management. If he develops severe pain, weakness to legs, inability urinate or bowel incontinence return to the ED for re-evaluation. <Mehnaz Phillips APRN - Last Filed: 12/28/24 15:33> Patient Language: German <Mehnaz Phillips APRN - Last Filed: 12/28/24 15:33> Prescriptions: New acetaminophen 500 mg tablet 1,000 mg PO TID PRN (Reason: romeo) 7 Days Qty: 42 0RF ibuprofen 400 mg tablet 400 mg PO TID Qty: 30 0RF methocarbamol 750 mg tablet 1,500 mg PO TID Qty: 35 0RF <Mehnaz Phillips APRN - Last Filed: 12/28/24 15:33> Follow-up/Referrals: Angela,BRAEDEN Farmer [Primary Care Provider] - <Mehnaz Phillips APRN - Last Filed: 12/28/24 15:33>
[2024-12-28] MEDS: KETOROLAC (*BKC) 60 MG/2 ML VIAL IM (16:45)
[2024-12-28] MEDS: predniSONE 20 MG TABLET 60 MG PO (16:45)
[2024-12-28 16:47] LABS: Basophils Absolute Auto 0.1 K/mm3 (0.0-0.1); Basophils Percent Auto 0.4 % (0.2-1.2); Eosinophils Percent Auto 0.3 % (0-4.4); Hematocrit 43.7 % (37.0-47.0); Hemoglobin 15.1 g/dL (12.0-15.0); Immature Granulocyte Absolute 0.09 K/mm3 (0.00-0.031); Immature Granulocyte Percent A 0.6 % (0-0.5); Lymphocytes Absolute Auto 3.19 K/mm3 (0.9-3.2); Lymphocytes Percent Auto 22.6 % (18.3-44.2); Mean Corpuscular HGB Conc 34.6 g/dl (32-36); Mean Corpuscular Hemoglobin 30.3 pg (26-34); Mean Corpuscular Volume 87.8 fl (80-100); Monocytes Absolute Auto 0.9 K/mm3 (0.1-0.6); Monocytes Percent Auto 6.3 % (2.6-8.5); Neutrophils Absolute Auto 9.9 K/mm3 (1.3-6.7); Neutrophils Percent Auto 69.8 % (45.5-73.1); Platelet Count Result 424 k/mm3 (150-375); Red Blood Count 4.98 M/mm3 (4.2-5.4); Red Cell Distribution Width 12.2 % (11.5-14.5); White Blood Count 14.1 K/mm3 (4.5-10.0)
[2024-12-28 17:02] LABS: Alanine Aminotransferase 18 U/L (6-35); Albumin Level 4.5 g/dL (3.5-5.1); Alkaline Phosphatase 80 U/L (38-126); Anion Gap 11 mmol/L (4-12); Aspartate Amino Transferase 22 U/L (14-36); Bilirubin,Total 0.6 mg/dL (0.2-1.3); Blood Urea Nitrogen 19 mg/dL (7-17); Calcium 9.2 mg/dL (8.4-10.2); Carbon Dioxide 24 mmol/L (22-30); Chloride 93 mmol/L (98-107); Estimated CRCL calculation 47 ml/min; Estimated Glomerular Filt Rate > 60; Glucose 163 mg/dL (65-110); Potassium 4.5 mmol/L (3.4-5.0); Sodium 128 mmol/L (137-145)
[2024-12-28 18:00] VITALS: BP 136/68; PULSE 70; RESP 18; O2SAT 98
--- NOTE | 2024-12-28 18:08 | PC.NURSE ---
Patient ambulated to the restroom with steady gate
[2024-12-28 18:27] LABS: Add Urine Microscopic? NO; Appearance Urine Clear (Clear); Bilirubin Urine Negative (Negative); Blood Urine Negative (Negative); Color Urine Yellow (Yellow); Glucose Urine UA Trace mg/dL (Negative); Ketones Urine Negative (Negative); Leukocyte Esterase Ur Negative LEU/UL (Negative); Nitrate Urine Negative (Negative); Protein Urine Negative (Negative); Specific Grav Ur > 1.045 (1.001-1.035); Urobilinogen Urine 0.2 mg/dL (<2.0); pH Urine 6.5 (5.0-9.0)
== END 2024-12-28 19:23 | disposition home or self-care (01) ==
PROVIDERS: Registered Nurse; Emergency Provider Emergency Medicine; PCP Nurse Practitioner Family
DX: M47.26 Other spondylosis with radiculopathy, lumbar region (principal); I10 Essential (primary) hypertension; E78.5 Hyperlipidemia, unspecified; E11.9 Type 2 diabetes mellitus without complications; E03.9 Hypothyroidism, unspecified; F17.210 Nicotine dependence, cigarettes, uncomplicated
CPT/HCPCS: 36415; 72132; 74177; 80053; 81003; 85025; 96372; 99284; J1885; J7512; Q9967

== ENCOUNTER 2025-09-22 14:24 | Outpatient (CLI) | payer MEDICARE, SELFPAY ==
--- NOTE | 2025-09-22 14:37 | ECG_ITS ---
Test Date: 2025-09-22 15:00:48 Measurements Intervals [place] Rate: 71 P: 56 [place]: 185 QRS: 3 QRSD: 86 T: 39 QT: 394 QTc: 429 Interpretive Statements SINUS RHYTHM DELAYED PRECORDIAL R/S TRANSITION BASELINE ARTIFACT- I, II, III, AVR, AVL, AVF, V6 BORDERLINE ECG No previous ECG available for comparison Electronically Signed On 09-22-2025 15:03:57 CDT by Anthony Mcguire D.O.
[2025-09-22 15:23] LABS: Anion Gap 7 mmol/L (4-12); Blood Urea Nitrogen 17 mg/dL (7-17); Calcium 8.7 mg/dL (8.4-10.2); Carbon Dioxide 24 mmol/L (22-30); Chloride 100 mmol/L (98-107); Estimated Glomerular Filt Rate > 60; Glucose 183 mg/dL (65-110); Potassium 4.1 mmol/L (3.4-5.0); Sodium 131 mmol/L (137-145)
--- OUTSIDE RECORDS SUMMARY | 2025-09-22 18:37 | XMS_ITS | Clinical Summary ---
Author Organization [facility] [address] [facility] Address [address] [place] [address] Care Team Providers Care Director Of Institutional Giving Name Role Phone Marleny Miller NP Primary Care Provider [phone] Allergies No known active allergies Medications aspirin 81 mg enteric coated tablet Take 1 tablet (81 mg total) by mouth every evening Active clobetasoL (TEMOVATE) 0.05 % ointment Apply 1 Application topically 2 (two) times a day as needed Active enalapril (VASOTEC) 10 mg tabletIndications: Hypertension, essential TAKE 1 TABLET(10 MG) BY MOUTH DAILY 100 tablet 1 03/17/20 25 Active propranoloL (INDERAL) 10 mg tabletIndications: Palpitations TAKE 1 TABLET(10 MG) BY MOUTH DAILY 90 tablet 1 04/14/20 25 Active levothyroxine (SYNTHROID) 112 mcg tabletIndications: Acquired hypothyroidism TAKE 1 TABLET VIRTUAL ASSISTANT BEFORE BREAKFAST 90 tablet 3 04/21/20 25 Active lovastatin (MEVACOR) 20 mg tablet TAKE 1 TABLET EVERY DAY 90 tablet 3 04/21/20 25 Active glyBURIDE (DIABETA) 5 mg tablet TAKE 1 TABLET EVERY DAY WITH BREAKFAST 90 tablet 3 04/21/20 25 Active Active Problems Problem Noted Date Diagnosed Date BMI 24.0-24.9, adult 03/31/2025 Overview (03/31/2025): Maintain healthy and balanced diet Positive colorectal cancer screening using Colog uard test 03/26/2024 Overview (03/26/2024): Contact Dr. Cloud's office for positive Cologuard test. We will call you in 2 weeks Palpitations 03/03/2024 Overview (03/03/2024): Start propranolol 10 mg daily. Follow-up with cardiology as directed. Go to the ER for worsening symptoms Feeling of chest tightness 02/20/2024 Overview (02/20/2024): Go directly to the ER for evaluation of intermittent chest pain. Follow-up after discharge Colon cancer screening declined 01/29/2023 BMI 25.0-25.9,adult 05/30/2022 Tobacco use 05/30/2022 Assessment & Plan (05/31/2022 [...] 12w. Assessment & Plan (12/12/2021 3:49 PM RECTIFYING OPERATOR): Stable, continue medications same at this time [...] session. Assessment & Plan (12/12/2021 3:49 PM RECTIFYING OPERATOR): Stable, continue medications same at this time Fasting labs entered, will notify patient of results as available Assessment & Plan (05/24/2021 6:20 PM CDT): Controlled with current medication, rf prn Fasting labs entered, will notify patient of results as available Hypertension, essential 05/24/2021 Assessment & Plan (05/31/2022 7:07 AM CDT): Patient advised to continue medications the same at this time. They will monitor home bp with goal 120-130/80s. Assessment & Plan (12/12/2021 3:49 PM RECTIFYING OPERATOR): Stable, continue medications same at this time Fasting labs entered, will notify patient of results as available Assessment & Plan (05/24/2021 6:20 PM CDT): Controlled with current medication, rf prn Fasting labs entered, will notify patient of results as available Encounter for Medicare annual wellness exam 05/03 Assessment & Plan (05/24/2021 6:21 PM CDT): Retrieve records from previous pcp She declines vaccination updates, bmd, cscope, or mammo Resolved Problems Problem Noted Date Diagnosed Date Resolved Date BMI 24.0-24.9, adult 03/03/2024 025 Overview (03/03/2024): Maintain healthy and balanced diet Subconjunctival hemorrhage of left eye 12/12/2021 01/29/2023 Assessment & Plan (12/12/2021 3:49 PM RECTIFYING OPERATOR): Advised conservative treatment, follow up if having [...] driving, climbing, or swimming at this time. Encounters Date Type Department Care Team Description 09/10/2025 1:00 PM CDT Office Visit [facility] Family Medicine [address] [address] Marleny Miller NP Type 2 diabetes mellitus with hyperlipidemia (HCC) (Primary Dx); Encounter for Medicare annual wellness exam; BMI 24.0-24.9, adult; Acquired hypothyroidism; Diabetes mellitus type II, controlled from Last 3 Months Immunizations Immunization Administration Dates Next Due Influenza, Unspecified 01/14/2025(Deferr ed: Patient Refused),12/02/2024(Deferred: Patient Refused),12/02/2024(Deferred: Patient Refused),08/13/2024(Deferred: Patient Refused),03/26/2024(Deferred: Patient Refused),02/24/2024(Deferred: Patient Refused),02/19/2024(Deferred: Patient Refused),02/05/2024(Deferred: Patient Refused),12/02/2023(Deferred: Patient Refused),12/02/2023(Deferred: Patient Refused),12/02/2023(Deferred: Patient Refused),12/02/2023(Deferred: Patient Refused),12/02/2023(Deferred: Patient Refused),12/02/2023(Deferred: Patient Refused),12/02/2023(Deferred: Patient Refused),12/02/2023(Deferred: Patient Refused),08/07/2023(Deferred: Patient Refused),08/07/2023(Deferred: Patient Refused),01/29/2023(Deferred: Patient Refused),12/02/2022(Deferred: Patient Refused),12/02/2022(Deferred: Patient Refused),01/02/2022(Deferred: Patient Refused) Pneumococcal Conjugate Pcv20 08/07/2023(Deferred : Patient Refused) Surgical History Surgery Date Site/Laterality Comments TUBAL LIGATION Medical History Medical History Date Comments Hypertension Diabetes mellitus Family History Medical History Relation Name Comments [...] more points, staff should administer the PHQ-9) 0 09/10/2025 Personal Safety Answer Date Recorded Have you [...] Sign Reading Time Taken Comments Blood Pressure 126/64 09/10/2025 12:51 PM CDT Pulse 64 09/10/2025 12:51 PM CDT Temperature 36.9 C (98.4 F) 09/10/2025 12:51 PM CDT Respiratory Rate 13 02/20/2024 2:35 PM CDT Oxygen Saturation 99% 09/10/2025 12:51 PM CDT Inhaled Oxygen Concentration - - Weight 59.9 kg (132 lb) 09/10/2025 12:51 PM CDT Height 157.5 cm (5' 2) 09/10/2025 12:51 PM CDT Body Mass Index 24.14 09/10/2025 12:51 PM CDT Plan of Treatment Health Maintenance Due Date Last Done Comments Osteoporosis Screening-Bone Density Scan 1947 Dilated Eye Exam 1947 Foot Exam 1947 DTaP/Tdap/Td Vaccine (1 - Tdap) 1958 Hepatitis B Screening 1965 Zoster Vaccine (1 of 2) 1997 Influenza Vaccine (#1) 2025 Pneumococcal vaccine 65+ (1 of 2 - PCV) 01/14/2026 Postponed from 1966 (Patient declined, but will receive in the future) Albumin Creatinine Ratio, Urine 02/02/2026 02/02/2025, 01/22/2024 Lipid Panel 02/02/2026 02/02/2025, 01/03, 02/04/2023, Additional history exists eGFR 02/02/2026 02/02/2025, 01/31, 01/22/2024, Additional history exists Hemoglobin A1C 03/11/2026 09/10/2025, 03/0 03/2025, 08/13/2024, Additional history exists Depression Screening 09/10/2026 09/10/2025, 03/09/2025, 01/14/2025, Additional history exists Fall Risk Assessment 09/10/2026 09/10/2025, 03/09/2025, 08/13/2024, Additional history exists Well Visit 65+ 09/10/2026 09/10/2025, 04/0 07/2025, 08/13/2024, Additional history exists Colon Cancer Screening-DNA Stool 03/16/2027 03/16/2024 Hepatitis C Screening Completed 02/04/2023 Procedures Procedure Name Priority Date/Time Associated Diagnosis Comments POCT HEMOGLOBIN A1C Routine 09/10/2025 1 :13 PM CDT Type 2 diabetes mellitus with hyperlipidemia (HCC) COMPREHENSIVE METABOLIC PANEL Routine 02/02/2025 8:35 AM RECTIFYING OPERATOR Hypertension associated with diabetes (HCC) LIPID PANEL Routine 02/02/2025 8:35 AM RECTIFYING OPERATOR Acquired hypothyroidism ALBUMIN CREATININE RATIO, URINE Routine 02/02/2025 8:35 AM RECTIFYING OPERATOR Hypertension associated with diabetes (HCC) STOOL DNA COLOGUARD Routine 03/16/2024 8:30 AM CDT Colon cancer screening HEPATITIS C ANTIBODY Routine 02/04/2023 8:46 AM RECTIFYING OPERATOR Encounter for hepatitis C screening test for low risk patient from Last 3 Months or Most Recently Relevant to Health Maintenance Results * (ABNORMAL) POCT hemoglobin A1c (09/10/2025 1:13 PM CDT) Hemoglobin A1C, POC 6.7(A) 4.0 - 5.6 % Blood 09/10/2025 1:13 PM CDT Marleny Miller NP POINT OF CARE TEST ORDERABLES Final Result * Albumin Creatinine Ratio, Urine (02/02/2025 8:35 AM RECTIFYING OPERATOR) Creatinine, ur 78 20 - 275 mg/dL [facility] Microalbumin, ur 0.7 See Note: mg/dL [facility] Comment: Reference Range: Reference Range Not established Microalbumin/creat ratio 9 <30 mg/g creat [facility] Comment: The ADA defines abnormalities in albumin excretion as follows: Albuminuria Category Result (mg/g creatinine) Normal to Mildly increased <30 Moderately increased 30-299 Severely increased > OR = 300 The ADA recommends that at least two of three specimens collected within a 3-6 month period be abnormal before considering a patient to be within a diagnostic category. Urine 02/02/2025 8:35 AM RECTIFYING OPERATOR 02/02/2025 8:40 AM RECTIFYING OPERATOR Narrative [facility] - 02/03/2025 4:20 AM RECTIFYING OPERATOR FASTING:YES FASTING: YES Marleny Miller NP LAB URINE ORDERABLES Final Re sult [facility] [address] [facility] [place] [address] * Lipid panel (02/02/2025 8:35 AM RECTIFYING OPERATOR) Cholesterol 160 <200 mg/dL [facility] Systems[facility] Mccormack HDL 64 > OR = 50 mg/dL [facility] claudia Mccormack Triglycerides 58 <150 mg/dL [employer] claudia Mccormack LDL 83 mg/dL (calc) [facility] claudia Mccormack Comment: Reference range: <100 Desirable range <100 mg/dL for primary prevention; <70 mg/dL for patients with CHD or diabetic patients with > or = 2 CHD risk factors. LDL-C is now calculated using the Napoleon-Ozuna calculation, which is a validated novel method providing better accuracy than the Friedewald equation in the estimation of LDL-C. Napoleon SS et al. JOSÉ ANTONIO. 2013;310(19): 9243-6529 (http://education.Boca Research/faq/TUX310) Chol/HDL ratio 2.5 <5.0 (calc) [facility] Mccormack Non-HDL, (LDL+VLDL) 96 <130 mg/dL (calc) [facility] claudia Mccormack Comment: For patients with diabetes plus 1 major ASCVD risk factor, treating to a non-HDL-C goal of <100 mg/dL (LDL-C of <70 mg/dL) is considered a therapeutic option. Blood 02/02/2025 8:35 AM RECTIFYING OPERATOR 02/02/2025 8:40 AM RECTIFYING OPERATOR Narrative [facility] - 02/03/2025 4:20 AM RECTIFYING OPERATOR FASTING:YES FASTING: YES Marleny M. Faires STRUCTURES MECHANIC LAB BLOOD ORDERABLES Final Re sult [facility] [address] [place] [address] * (ABNORMAL) Comprehensive metabolic panel (02/02/2025 8:35 AM RECTIFYING OPERATOR) Glucose 139(H) 65 - 99 mg/dL [facility] claudia [place] Comment: Fasting reference interval For someone without known diabetes, a glucose value >125 mg/dL indicates that they may have diabetes and this should be confirmed with a follow-up test. BUN 11 7 - 25 mg/dL [facility] claudia [place] Creatinine 0.86 0.60 - 1.00 mg/dL [facility] eGFR 70 > OR = 60 mL/min/1.7 3m2 [facility] [place] BUN/creat ratio SEE NOTE: 6 - 22 (calc) [facility] Comment: Not Reported: BUN and Creatinine are within reference range. Sodium 136 135 - 146 mmol/L [facility] [place] Potassium, pl 4.2 3.5 - 5.3 mmol/L [facility] [place] Chloride 101 98 - 110 mmol/L [facility] CO2 28 20 - 32 mmol/L [facility] [place] Calcium 9.4 8.6 - 10.4 mg/dL [facility] [place] Protein, sr 6.5 6.1 - 8.1 g/dL [facility] Albumin 4.4 3.6 - 5.1 g/dL [facility] GLOBULIN 2.1 1.9 - 3.7 g/dL (calc) [facility] Alb/glob ratio 2.1 1.0 - 2.5 (calc) [facility] Bilirubin, total 0.6 0.2 - 1.2 mg/dL [facility] Alk phos 69 37 - 153 U/L [facility] AST 13 10 - 35 U/L [facility] ALT (SGPT) 15 6 - 29 U/L [facility] [place] Blood 02/02/2025 8:35 AM RECTIFYING OPERATOR 02/02/2025 8:40 AM RECTIFYING OPERATOR Narrative [facility] - 02/03/2025 4:20 AM RECTIFYING OPERATOR FASTING:YES FASTING: YES us Marleny Miller STRUCTURES MECHANIC LAB BLOOD ORDERABLES Final Re sult [facility] [address] [place] [address] * (ABNORMAL) Stool DNA - Cologuard (03/16/2024 8:30 AM CDT) Stool DNA - Cologuard Positive( A) Negative [employer] (CLIA #:[id number]) Comment: POSITIVE TEST RESULT. A positive Cologuard result should be followed with a colonoscopy or visual examination of the colon. The normal value (reference range) for this assay is negative. TEST DESCRIPTION: Composite algorithmic analysis of stool DNA-biomarkers with hemoglobin immunoassay. Quantitative values of individual biomarkers are not [...] (Tyrese Chen al, N Engl J Med 2014;370(14):8800-5668.) Cologuard may produce a false negative or false positive result (no colorectal cancer or precancerous polyp present at colonoscopy follow up). A negative Cologuard test result does not guarantee the absence of CRC or advanced adenoma (pre-cancer). The current Cologuard screening interval is every 3 years. ([place] Cancer Society and U.S. Multi-Society Task Force). Cologuard performance data in a 10,000 patient pivotal study using colonoscopy as the reference method can be accessed at the following location: www.[email or web address] Systems/results. Additional description of the Cologuard test process, warnings and precautions can be found at www.cologONEHOPErd.com. Stool 03/16/2024 8:30 AM CDT 03/17/2024 10:19 AM CDT Marleny Miller STRUCTURES MECHANIC LAB BODY FLUIDS AND STOOLS OR DERABLES Final Result Performing Organization Address [facility] Co de Phone Number Larky (CLIA #:[id number]) [place] [address] * Hepatitis C antibody (02/04/2023 8:46 AM RECTIFYING OPERATOR) Hep C Ab NON-REACTI VE NON-REACT PRATIK [facility] SIGNAL TO CUT-OFF 0.04 <1.00 [facility] Comment: HCV antibody was non-reactive. There is no laboratory evidence of HCV infection. In most cases, no further action is required. However, if recent HCV exposure is suspected, a test for HCV RNA (test code 49709) is suggested. For additional information please refer to http://education.Zerto.Corevalus Systems/faq/QLW75t0 (This link is being provided for informational/ educational purposes only.) Blood 02/04/2023 8:46 AM RECTIFYING OPERATOR 02/04/2023 8:46 AM RECTIFYING OPERATOR Marleny Miller NP LAB MICROBIOLOGY - GENERAL OR DERABLES Final Result Performing Organization Address [facility] Co de Phone Number [facility] [address] [address] [phone] from Last 3 Months or Most Recently Relevant to Health Maintenance Insurance HU[employer]NA MEDICARE HMO HU[employer]NA MEDICARE HMO Care Teams Director Of Institutional Giving Relationship Specialty Start Date End Date Marleny Miller NP [address] [place] [id number] PCP - General Internal Medicine 01/29/23
== END 2025-09-22 14:25 | disposition home or self-care (01) ==
LOC: ANHSURGERY 14:28
PROVIDERS: Anesthesiology; PCP Nurse Practitioner Family; Visit Provider Orthopaedic Surgery
DX: F17.200 Nicotine dependence, unspecified, uncomplicated (principal); I10 Essential (primary) hypertension; E78.5 Hyperlipidemia, unspecified; E11.9 Type 2 diabetes mellitus without complications; R94.31 Abnormal electrocardiogram [ECG] [EKG]
CPT/HCPCS: 36415; 80048; 93005

== ENCOUNTER 2025-09-24 02:08 | Day surgery (SDC) | payer MEDICARE, SELFPAY ==
[2025-09-17 09:12] VITALS: BMI 23.8
--- NOTE | 2025-09-17 09:22 | PC.NURSE ---
[facility] has started construction of its new state of the art ER which will open Spring 2026. With this, we anticipate parking may be a challenge for some our surgical patients and families. Parking spaces are limited but are available for all Surgical, obstetrics, and ER patients sharing this lot. If you arrive and find you are having a hard time finding a parking space, please note that we understand the challenges, please drive around the hospital and park near Hospital Entrance 1. When you enter this entrance, you can ask a volunteer to direct or take you back to the surgical waiting area to check in. We appreciate everyone?s understanding of these expected challenges while we build for your future. Report to the Outpatient Waiting Room, entrance under the green pavilion located off [address], at time _0600am on date 09/24/25 . Planned Procedure Time: _0730am .? Time changes happen often and if your time is changed the preop area will call you the afternoon before. - You and your visitor will be asked to self-screen and do not enter if you have any COVID symptoms. Please call surgeon if you need to reschedule. - A mask is optional within the hospital at this time. Patients may have clear liquids (water, carbonated beverages, clear teas, apple juice) until 3 hours prior to surgery with a maximum of 20 ounces. - No food from midnight until time of surgery and no smoking, or chewing tobacco (or any form of nicotine). No chewing gum, candy or mints. (0430am) Take only the following medications with a SIP of water on the morning of surgery: Propanalol and Levothyroxine DO NOT STOP ANY OF YOUR OTHER PRESCRIPTION MEDICATIONS PRIOR TO SURGERY EXCEPT THE FOLLOWING Hold all vitamins and supplements for 3 days per anesthesiologist. Medications to discontinue per physician ASPIRIN per Dr Thomas, they will call pt w instructions Date to take last dose Pending Please no make-up, nail tamazight, hairspray, perfume, deodorant, or body powder the day of surgery.? No jewelry (including any body piercings) or valuables the day of surgery, leave them at home.? Please take a shower or bath the night before, or the morning of, surgery with an antibacterial soap.? Wear comfortable, loose fitting clothing.? HIBICLEANSE SCRUB as DIRECTED per DR THOMAS - Jewelry must be removed prior to entering the operating room.? Rings and piercings that are not removed may be cut off. - The hospital will not accept responsibility for valuables.? - Please leave all valuables, including medications, at home the day of surgery. If you are going home after surgery, a licensed escort vehicle driver must drive you home.? - NO public transportation without another adult if you receive anesthesia. - We recommend that an adult stay with you for 24 hours following discharge. - We also recommend that you do not drive, make important decision, drink alcoholic beverages, or take any drugs that were not prescribed by your health care provider for at least 24 hours after your discharge time. Pt to come next week for labs and EKG Follow any additional instructions given to you from your surgeon. Telephone instructions given to ___Patient and asked if any additional questions and then verbalized understanding. Patient advised to call surgeon office or pre surgery nurse liaison [phone] if any additional questions.
--- OUTSIDE RECORDS SUMMARY | 2025-09-24 02:11 | XMS_ITS | Clinical Summary ---
Author Organization [facility] [address] [facility] Address [address] [place] [address] Care Team Providers Care Pattern And Chain Maker Name Role Phone Marleny Miller NP Primary Care Provider [phone] Allergies No known active allergies Medications aspirin [...] mcg tabletIndications: Acquired hypothyroidism TAKE 1 TABLET FURNITURE MOVER DRIVER BEFORE BREAKFAST 90 tablet 3 04/21/20 25 [...] 12w. Assessment & Plan (12/12/2021 3:49 PM MEAT AND SEAFOOD MANAGER): Stable, continue medications same at this time [...] session. Assessment & Plan (12/12/2021 3:49 PM MEAT AND SEAFOOD MANAGER): Stable, continue medications same at this time [...] 120-130/80s. Assessment & Plan (12/12/2021 3:49 PM MEAT AND SEAFOOD MANAGER): Stable, continue medications same at this time [...] 01/29/2023 Assessment & Plan (12/12/2021 3:49 PM MEAT AND SEAFOOD MANAGER): Advised conservative treatment, follow up if having [...] Description 09/10/2025 1:00 PM CDT Office Visit [facility] Family Medicine [address] [address] Marleny Miller NP Type 2 [...] COMPREHENSIVE METABOLIC PANEL Routine 02/02/2025 8:35 AM MEAT AND SEAFOOD MANAGER Hypertension associated with diabetes (HCC) LIPID PANEL Routine 02/02/2025 8:35 AM MEAT AND SEAFOOD MANAGER Acquired hypothyroidism ALBUMIN CREATININE RATIO, URINE Routine 02/02/2025 8:35 AM MEAT AND SEAFOOD MANAGER Hypertension associated with diabetes (HCC) STOOL DNA COLOGUARD Routine 03/16/2024 8:30 AM CDT Colon cancer screening HEPATITIS C ANTIBODY Routine 02/04/2023 8:46 AM MEAT AND SEAFOOD MANAGER Encounter for hepatitis C screening test for low risk patient from Last 3 Months or Most Recently Relevant to Health Maintenance Results * (ABNORMAL) POCT hemoglobin A1c (09/10/2025 1:13 PM CDT) Hemoglobin A1C, POC 6.7(A) 4.0 - 5.6 % Blood 09/10/2025 1:13 PM CDT Marleny Miller NP POINT OF CARE TEST ORDERABLES Final Result * Albumin Creatinine Ratio, Urine (02/02/2025 8:35 AM MEAT AND SEAFOOD MANAGER) Creatinine, ur 78 20 - 275 mg/dL [...] a diagnostic category. Urine 02/02/2025 8:35 AM MEAT AND SEAFOOD MANAGER 02/02/2025 8:40 AM MEAT AND SEAFOOD MANAGER Narrative [facility] - 02/03/2025 4:20 AM MEAT AND SEAFOOD MANAGER FASTING:YES FASTING: YES Marleny Miller NP LAB URINE ORDERABLES Final Re sult [facility] [address] [facility] [place] [address] * Lipid panel (02/02/2025 8:35 AM MEAT AND SEAFOOD MANAGER) Cholesterol 160 <200 mg/dL [facility] developers[facility] Mccormack HDL 64 > OR = 50 mg/dL [facility] claudia Mccormack Triglycerides 58 <150 mg/dL [employer] [facility] claudia Mccormack LDL 83 mg/dL (calc) [facility] claudia Mccormack Comment: Reference range: <100 Desirable range <100 mg/dL for primary prevention; <70 mg/dL for patients with CHD or diabetic patients with > or = 2 CHD risk factors. LDL-C is now calculated using the Napoleon-Ozuna calculation, which is a validated novel method providing better accuracy than the Friedewald equation in the estimation of LDL-C. Napoleon SS et al. JOSÉ ANTONIO. 2013;310(19): 0076-8451 (http://education.eStartAcademy.com/faq/BXT613) Chol/HDL ratio 2.5 <5.0 (calc) [employer] [facility]Armand Mccormack Non-HDL, (LDL+VLDL) 96 <130 mg/dL (calc) [facility] claudia Mccormack Comment: For patients with diabetes plus 1 major ASCVD risk factor, treating to a non-HDL-C goal of <100 mg/dL (LDL-C of <70 mg/dL) is considered a therapeutic option. Blood 02/02/2025 8:35 AM MEAT AND SEAFOOD MANAGER 02/02/2025 8:40 AM MEAT AND SEAFOOD MANAGER Narrative [facility] - 02/03/2025 4:20 AM MEAT AND SEAFOOD MANAGER FASTING:YES FASTING: YES Marleny M. Faires STENO TYPIST LAB BLOOD ORDERABLES Final Re sult [facility] [address] [place] [address] * (ABNORMAL) Comprehensive metabolic panel (02/02/2025 8:35 AM MEAT AND SEAFOOD MANAGER) Glucose 139(H) 65 - 99 mg/dL [facility] claudia [place] Comment: Fasting reference interval For someone without known diabetes, a glucose value >125 mg/dL indicates that they may have diabetes and this should be confirmed with a follow-up test. BUN 11 7 - 25 mg/dL [facility] claudia [place] Creatinine 0.86 0.60 - 1.00 mg/dL [facility] [place] eGFR 70 > OR = 60 mL/min/1.7 3m2 [facility] [place] BUN/creat ratio SEE NOTE: 6 - 22 (calc) [facility] Comment: Not Reported: BUN and Creatinine are within reference range. Sodium 136 135 - 146 mmol/L [facility] [place] Potassium, pl 4.2 3.5 - [...] Diagnostics-S claudia [place] Blood 02/02/2025 8:35 AM MEAT AND SEAFOOD MANAGER 02/02/2025 8:40 AM MEAT AND SEAFOOD MANAGER Narrative [facility] - 02/03/2025 4:20 AM MEAT AND SEAFOOD MANAGER FASTING:YES FASTING: YES us Marleny Miller STENO TYPIST LAB BLOOD ORDERABLES Final Re sult [facility] [address] [place] [address] * (ABNORMAL) Stool DNA - Cologuard (03/16/2024 8:30 AM CDT) Stool DNA - Cologuard Positive( A) Negative [employer] (CLIA #:[id number]) Comment: POSITIVE TEST RESULT. A positive Cologuard [...] (Tyrese Chen al, N Engl J Med 2014;370(14):9653-5225.) Cologuard may produce a false negative or false positive result (no colorectal cancer or precancerous polyp present at colonoscopy follow up). A negative Cologuard test result does not guarantee the absence of CRC or advanced adenoma (pre-cancer). The current Cologuard screening interval is every 3 years. ([place] Cancer Society and U.S. Multi-Society Task Force). Cologuard performance data in a 10,000 patient pivotal study using colonoscopy as the reference method can be accessed at the following location: www.CyActive.MondayOne Properties/results. Additional description of the Cologuard test process, warnings and precautions can be found at www.cologsnapp.merd.com. Stool 03/16/2024 8:30 AM CDT 03/17/2024 10:19 AM CDT Marleny Miller STENO TYPIST LAB BODY FLUIDS AND STOOLS OR DERABLES Final Result Performing Organization Address [facility] Co de Phone Number [employer] (CLIA #:[id number]) [place] [address] * Hepatitis C antibody (02/04/2023 8:46 AM MEAT AND SEAFOOD MANAGER) Hep C Ab NON-REACTI VE NON-REACT PRATIK [facility] SIGNAL TO CUT-OFF 0.04 <1.00 [facility] Comment: HCV antibody was non-reactive. There is no laboratory evidence of HCV infection. In most cases, no further action is required. However, if recent HCV exposure is suspected, a test for HCV RNA (test code 10086) is suggested. For additional information please refer to http://education.Leatt.MondayOne Properties/faq/SCK18f1 (This link is being provided for informational/ educational purposes only.) Blood 02/04/2023 8:46 AM MEAT AND SEAFOOD MANAGER 02/04/2023 8:46 AM MEAT AND SEAFOOD MANAGER Marleny Miller NP LAB MICROBIOLOGY - GENERAL OR DERABLES Final Result Performing Organization Address [facility] Co de Phone Number [facility] [address] [place] [phone] from Last 3 Months or Most Recently Relevant to Health Maintenance Insurance HUMANA MEDICARE HMO HUMANA MEDICARE HMO Care Teams Pattern And Chain Maker Relationship Specialty Start Date End Date Marleny Miller NP [address] [place] [address] PCP - General Internal Medicine 01/29/23
--- OUTSIDE RECORDS SUMMARY | 2025-09-24 02:11 | XMS_ITS | Patient Health Record ---
Author Organization [facility] Address 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 Name Role Phone Connor Waters MD Primary Care Provider Katheryn Lema Luis Unavailable [phone] Allergies Allergen (clinical drug ingredient) Drug/Non Drug Allergy documented on EMR Reaction Allergy Type Onset Date Status Information temporarily unavailable [place] juice (uncoded) Unknown Allergy Activ e Reason For Referral No Information Medications Medication SIG (Take, Route, Frequency, Duration) Notes Start Date End Date Status Aspir-81 *Reorder from [facility] for eRx and Interaction Alerts* Active Synthroid *Pick strength-f orm from [facility] for eRX* Active Enalapril Maleate *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 Tobacco Use: (Tobacco Use/Smoking):yes Are you a: current smoker , How often do you smoke cigarettes?: every day, How many cigarettes a day do you smoke?: 11-20 Problems Problem Type SNOMED Code ICD Code Onset Dates Problem Status W/U Status Risk Notes Problem Information temporarily unavailable Pain in thoracic spine (724.1) Active confirmed Problem Information temporarily unavailable Lumbago (724.2) Active confirmed Problem Information temporarily unavailable Displacement of lumbar 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) Active confirmed Problem Information temporarily unavailable Sacroiliitis, not elsewhere classified (M46.1) Active confirmed Problem Information temporarily unavailable Pain in thoracic spine (M54.6) Active confirmed Problem Information temporarily unavailable Muscle spasm of back (M62.830) Active confirmed Problem Information temporarily unavailable Segmental and somatic dysfunction of lumbar region (M99.03) Active confirmed Problem Information temporarily unavailable Segmental and somatic dysfunction of sacral region (M99.04) Active confirmed Problem Information temporarily unavailable Segmental and somatic dysfunction of pelvic region (M99.05) Active confirmed Problem Information temporarily unavailable Osteoarthritis of spine with radiculopathy, lumbar region (M47.26) Active confirmed Problem Information temporarily unavailable Body mass index (BMI) of 23.0-23.9 in adult (Z68.23) Active confirmed Problem Information temporarily unavailable Intervertebral disc disorder with radiculopathy of lumbosacral region (M51.17) Active confirmed Problem Information temporarily unavailable Muscle spasm (728.85) Active confirmed Problem Information temporarily unavailable Intervertebral disc disorder with radiculopathy of lumbar region (M51.16) Active confirmed Problem Information temporarily unavailable BMI BETWEEN 19-24,ADULT (V85.1) Active confirmed Problem Information temporarily unavailable DJD Lumbar (722.52) Active confirmed Problem Information temporarily unavailable Bilateral SI Joint Pain/Dysfunction (724.6) Active confirmed Plan Of Treatment No Information Insurance Providers Payer Name Payer Address Payer Phone Subscriber Number Group Number Insured Name Patient Relationship to Insured Coverage Start Date Coverage End Date [employer] HMO FFS [address] [address] [place] [address] [phone] [id number] CATRACHITOLEONARDAKYLE BRYANT Self - patient is the insured 4 [employer] Gold Plus HMO FFS [address] [address] [place] [address] [id number] CATRACHITOJAY KYLE Self - patient is the insured 4 Medical (General) History Medical History History ICD Code Irritable Bowel Syndrome High Blood Pressure Surgical History Surgery Date(Month/Year) [place] Teeth Removal Tubal Ligation
--- OUTSIDE RECORDS SUMMARY | 2025-09-24 02:12 | XMS_ITS | Patient Health Record ---
[facility] Address [address] [place] [address] Care Team Providers Care Stacker Attendant Name Role Phone Katherine Jenkins Primary Care Provid er [phone] Reason For Referral No Information Medications Medication SIG (Take, Route, Frequency, Duration) Notes Start Date End Date Status glyBURIDE 5 MG 1 tablet Orally Once a day; Duration: 90 days 10/21/2014 Active Enalapril Maleate 5 MG 1 tablet Orally Once a day; Duration: 90 days Active Aspirin EC 81MG 1 TAB ORAL daily; Duration: -3 *Pick strength-form from [facility] for eRX* 04/15/2014 Active Levothyroxine Sodium 100 MCG 1 tablet in the morning on an empty stomach Orally Once a day; Duration: 90 days Active Lovastatin 20 MG 1 tablet with the evening meal Orally Once a day; Duration: 90 days Active Immunizations Vaccine Route Administration Date Status Comme nts Pneumococcal Polysaccharide PPV23 (Pneumovax 23) Unknown 03/25/2018 Refused Immunization Giv en by from source eCW:: Pneumococcal Polysaccharide PPV23 (Pneumovax 23) Unknown 04/07/2019 Pending Immunization Giv en by from source eCW:: Prevnar 13 Unknown 03/20/2017 Refused REFUSED Immuni zation Given by from source eCW:: Problems Problem Type SNOMED Code ICD Code Onset Dates Problem Status W/U Status Risk Notes Problem Information temporarily unavailable Tobacco abuse (Z72.0) Active confirmed Problem Information temporarily unavailable Atherosclerosis of aorta (I70.0) Active confirmed Problem Information temporarily unavailable Type 2 diabetes mellitus with diabetic chronic kidney disease (E11.22) Active confirmed Problem Information temporarily unavailable Hyperlipidemia, unspecified (E78.5) Active confirmed Problem Information temporarily unavailable Hypothyroidism, unspecified (E03.9) Active confirmed Problem Information temporarily unavailable Centrilobular emphysema (J43.2) Active confirmed Problem Information temporarily unavailable Chronic kidney disease, stage 2 (mild) (N18.2) Active confirmed Problem Information temporarily unavailable Essential (primary) hypertension (I10) Active confirmed Problem Information temporarily unavailable Anxiety (F41.9) Active confirmed Problem Information temporarily unavailable Psoriasis (L40.9) Active confirmed Plan Of Treatment No Information Insurance Providers Payer Name Payer Address Payer Phone Subscriber Number Group Number Insured Name Patient Relationship to Insured Coverage Start Date Coverage End Date [employer] RISK CAP MCR ADV HMO [address] [address] [place] [phone] [id number] ALISE KELTONE Self - patient is the insured 5 Medical (General) History Medical History History ICD Code Essential hypertension, benign Other and unspecified hyperlipidemia Unspecified hypothyroidism Diabetes mellitus without me ntion of complication, type II or unspecified type, not stated as uncontrolled Diabetes with renal manifest ations, type II or unspecified type, not stated as uncontrolled Chronic kidney disease, Stage II (mild) Other abnormal glucose COLONOSCOPY REFUSES tie inspector dr. alberts last pap 2012 bone density 2012 Surgical History Surgery Date(Month/Year) wisdom teeth Hospitalization History Reason Date(Month/Year) child
--- NOTE | 2025-09-24 06:46 | WPDANESEPPF ---
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 Patient Data Age: 80 Gender: F Height: 1.57 m Weight: 59 kg Allergies Allergy/AdvReac Type Severity Reaction Status Date / Time No Known Allergies Allergy Verified 09/17/25 09:09 Home Medications ?Medication ?Instructions ?Recorded ?Confirmed ?Type aspirin 81 mg chewable tablet 81 mg PO DAILY 09/17/25 09/17/25 History (Myah Chewable Low Dose Aspirin) chlorhexidine gluconate 4 % 1 applic topical ONCE #237 mL 09/17/25 09/17/25 Rx topical liquid (Hibiclens) enalapril maleate 10 mg tablet 10 mg PO DAILY 09/17/25 09/17/25 History glyburide 5 mg tablet 5 mg PO DAILY 09/17/25 09/17/25 History levothyroxine 112 mcg tablet 112 mcg PO DAILY 09/17/25 09/17/25 History lovastatin 20 mg tablet 20 mg PO QPM 09/17/25 09/17/25 History propranolol 10 mg tablet 10 mg PO DAILY 09/17/25 09/17/25 History Laboratory Tests 09/24/25 06:42 Sodium Pending Patient hx anesthesia problems: none Family hx anesthesia problems: none Results Review: All pre-operative results and documents have been reviewed as part of the pre-operative evaluation. [facility] Past Medical History Medical History Hypothyroidism HTN (hypertension) HLD (hyperlipidemia) Diabetes Surgical History Surgical History No history of previous surgery Family History Family History Other Diabetes mellitus HLD (hyperlipidemia) Hypertension Social History Social History Smoking packs per day: 0.5 Smoking cigarettes per day: 10.0 Years smoked: 30 Smoking pack-years: 15.00 Smoking status: Current every day smoker Tobacco type: cigarettes Second hand tobacco smoke exposure: No Alcohol intake: current Drinks per week: 1 Substance use: never Substance use type: does not use Living arrangements: with family Occupation/Education: retired Gender identity (if verbalized by the patient): Female Spiritual care concerns: No Anes - Eval Final PreProcedure Day of Procedure 09/24/25 06:46 Patient weight: normal Heart: regular rate and rhythm Lungs: clear to auscultation Airway: Mallampati scale class II Neurological: alert and oriented Last oral intake: >/= 8 hours ASA classification: III Emergent: no Anesthetic plan: proceed Anesthesia type and monitoring: general GIVS and standard monitoring Results Review: All pre-operative results and documents have been reviewed as part of the pre-operative evaluation. Informed Consent: The patient's anesthetic plan and its attendant risks and benefits were discussed with the patient/family/POA. Questions were solicited and answers provided to the satisfaction of the patient/family/POA.
[2025-09-24 06:55] LABS: Sodium 134 mmol/L (137-145)
[2025-09-24 07:00] VITALS: BP 158/66; PULSE 66; RESP 16; TEMP 36.3; O2SAT 100
[2025-09-24] MEDS: CELECOXIB 200 MG CAPSULE PO (07:00)
[2025-09-24] MEDS: LACTATED RINGERS 1,000 ML 30 ML IV CONT (07:00)
[2025-09-24] MEDS: ACETAMINOPHEN 500 MG TABLET 1000 MG PO (07:00)
--- NOTE | 2025-09-24 07:22 | WPDHPUPDATE1 ---
History and Physical Update Update Date/Time: 09/24/25 07:22 History and Physical has been reviewed, including an updated exam of the patient. There are NO changes in the patient's condition. Risks, benefits, and alternatives have been discussed and questions answered. Patient agrees to proceed with procedure.
[2025-09-24] MEDS: ceFAZolin 2 GM in SODIUM CHLORIDE 0.9% IV 50 ML 100 ML IVPB (07:27)
[2025-09-24 08:18] VITALS: BP 160/62; PULSE 73; RESP 14; O2SAT 95
--- NOTE | 2025-09-24 08:22 | W.PM.PROC2 ---
Procedure Note - Detailed Date of Procedure 09/24/25 Pre-op Diagnosis Left Carpal Tunnel Synd Post-op Diagnosis Same Procedure Performed LEFT CTR Surgeon Dangelo Thomas MD Anesthesia General Description of Procedure THE LEFT UPPER EXTREMITY WAS PREPPED AND DRAPED IN THE STERILE FASHION. THE CARPAL TUNNEL WAS MARKED FROM THE FLEXED RING FINGER. THE TORNEQUET WAS INFLATED. THE INCISION WAS MADE AT THE MID PALM DOWN THROUGH THE SUBCUTANEOUS TISSUES. THE PALMAR FASCIA WAS IDENTIFIED. AN INCISION WAS MADE THROUGH THE PALMAR FASCIA UNTIL THE CARPAL TUNNEL WAS ENTERED. A MOSQUITO HEMOSTAT WAS USED TO PROTECT THE MEDIAN NERVE WHILE THE INCISION TO THE PALMAR FASCIA WAS COMPLETE PROXIMALLY AND DISTALLY TO THE CARDINAL LINE. NEXT, THE TRANSVERSE CARPAL LIGAMENT WAS IDENTIFIED. A FREIER ELEVATOR WAS USED TO SEPARATE THE NERVE FROM THE LIGAMENT. A METZENBAUM SCISSORS WAS THEN USED TO INCISE THE TRANSVERSE CARPAL LIGAMENT UNTIL THERE WAS A COMPLETE RELEASE OF THE CARPAL TUNNEL. THE MEDIAN NERVE WAS INTACT. THE TOURNEQUET WAS DEFLATED. THE BLEEDERS WERE CAUTERIZED. THE WOUND WAS WASHED. THE SKIN WAS APPROXIMATED WITH 4-0 NYLON SUTURE. STERILE DRESSING WAS APPLIED. PATIENT WAS EXTUBATED AND SENT TO THE RECOVERY ROOM. Estimated Blood Loss 5 Complications No immediate complications Condition Stable Disposition PACU
[2025-09-24 08:45] VITALS: BP 143/55; PULSE 57; RESP 20
[2025-09-24 09:10] VITALS: BP 138/53; PULSE 61; RESP 20
== END 2025-09-24 09:25 | disposition home or self-care (01) ==
PROVIDERS: Anesthesiology; PCP Nurse Practitioner Family; Visit Provider Orthopaedic Surgery
PROC: (CPT 64721; principal; 2025-09-24 07:30)
DX: G56.02 Carpal tunnel syndrome, left upper limb (principal); E78.5 Hyperlipidemia, unspecified; I10 Essential (primary) hypertension; E03.9 Hypothyroidism, unspecified; E11.9 Type 2 diabetes mellitus without complications; F17.210 Nicotine dependence, cigarettes, uncomplicated; Z79.82 Long term (current) use of aspirin; Z79.1 Long term (current) use of non-steroidal anti-inflammatories (NSAID)
CPT/HCPCS: 64721; 36415; 82948; 84295; J0690; A9270; J2003; J2250; J2704; J3010; J7120